=== PATIENT | male | born 1965 | race Caucasian/White ===

== ENCOUNTER 2019-05-23 15:01 | Emergency (ER) | payer BC, SELFPAY ==
[2019-05-23 15:09] VITALS: BP 144/111; PULSE 102; RESP 18; O2SAT 95; BMI 28.8
--- NOTE | 2019-05-23 15:22 | W.ED.WOUNDLC ---
HPI - Wound/Laceration General: Chief Complaint: Wound/Laceration Stated Complaint: finger lac Time Seen by Provider: 05/23/19 15:05 Source: patient Mode of arrival: ambulatory Limitations: no limitations History of Present Illness: HPI narrative: Patient is a very nice 53-year-old male who presents to ED today with complaints of a left index finger laceration that he sustained when a table saw kicked back. States his tetanus is not up-to-date. Onset (ago): hour(s) Extremity Location: Left: hand Place: home Patient tetanus UTD: No Context: accidental Associated symptoms: Reports no associated symptoms Review of Systems Skin/Breast: Reports: other (laceration) Neuro: Denies: numbness in extremities or changes in sensation PFSH ED PFSH: Social History Smoking and tobacco status: former smoker Physical Exam Const: COMMON NORMALS: no apparent distress, average body habitus, oriented x3, no limitations, healthy appearing, alert and well nourished Extremity: OTHER: Patient with an approximately 2 cm laceration over the dorsal aspect of his left index proximal phalanx. His extensor tendon and tendon sheath are visualized but do not appear damaged. Patient maintains full range of motion against resistance of the digit. Sensory appears intact. Neuro: COMMON NORMALS: oriented x3 SENSORIUM/ORIENTATION: Yes alert Skin: OTHER: see extremity assessment Procedures Laceration Laceration 1: Site: hand (left index finger) Side (If applicable): left Size (cm): 2.0 Description: irregular and clean Depth: simple, single layer Local Anesthetic: lidocaine 1% Amount of anesthesia used (mL): 2.0 Pre-repair: wound explored and irrigated extensively Skin layer closed with: nylon Size (cm): 4-0 Number of sutures: 6 Technique: simple, interrupted Course Vital Signs: Vital signs: Vital Signs Pulse Rate 102 H 05/23/19 15:09 Respiratory Rate 18 05/23/19 15:09 Blood Pressure 144/111 05/23/19 15:09 Pulse Oximetry 95 05/23/19 15:09 MDM - Wound/Laceration MDM Narrative: Medical decision making narrative: due to proximal phalanx fx evident on XR there also might be tendon involvement as well that was not evident on his exam; pt will be splinted and placed on abx and will have him follow up with Dr. Muñoz; he is aware this may require hand surgery if [place] feels this is warranted Imaging Data^: L index finger XR: Radiologist's impression: [address] [place] [address] XRay Report Signed Patient: Benedicto Brennan Unit #: [id number] : 1965 Age/Sex: 53 / M ADM Date: 05/23/19 Loc: ER Room/Bed: Attending Dr: Ordering Provider/Ordering MD: Chelsie Colon Date of Service: 05/23/19 Procedure(s): XR finger LT min 2V 59333 Accession Number(s): [id number] Report Number: [id number] PROCEDURE INFORMATION: Exam: XR Left Finger(s) Exam date and time: 05/23/2019 3:32 PM Age: 53 years old Clinical indication: Injury or trauma; Injury history: Cut with table saw 2nd digit; Initial encounter; Wound; Left; Index finger TECHNIQUE: Imaging protocol: XR Left fingers. Views: Minimum 2 views. COMPARISON: No relevant prior studies available. FINDINGS: Bones/joints: Possible hairline fracture involving the dorsal portion of the proximal shaft of the index finger proximal phalanx in the region of the laceration. Possible tiny bony injury. Image 1003. Soft tissues: Probable skin laceration over the dorsal portion of the index finger proximal phalanx. XR/XR finger LT min 2V 79014 IMPRESSION: 1. Probable skin laceration over the dorsal portion of the index finger proximal phalanx. 2. Possible hairline fracture involving the dorsal portion of the proximal shaft of the index finger proximal phalanx in the region of the laceration. Possible tiny bony injury. Image 1003. Dictated By: Guido Jaquez MD Signed By: Guido Jaquez MD Signed Date/Time: 05/23/19 1605 DD/ 1604 Discharge Plan Discharge Patient Disposition: Home, Self-Care Clinical Impression: Laceration of left index finger Qualifiers: Encounter type: initial encounter Damage to nail status: without damage Foreign body presence: without foreign body Qualified Code(s): S61.211A - Laceration without foreign body of left index finger without damage to nail, initial encounter Open fracture of proximal phalanx of left index finger Qualifiers: Encounter type: initial encounter Fracture alignment: nondisplaced Qualified Code(s): S62.641B - Nondisplaced fracture of proximal phalanx of left index finger, initial encounter for open fracture Condition: Stable Prescriptions: New Keflex 500 mg capsule 500 mg PO Q6H 7 Days Qty: 28 RF: 0 Discharge Orders: Discharge Order (Routine); Ordered 05/23/19 Ordered By: Chelsie Colon Referrals: Lambert Serrano MD [Family Provider] - Patient Instructions: Suture Care (ED), Laceration (ED), Suture Removal (ED), Finger Laceration (ED) Activity Restrictions/Additional Instructions: As discussed keep wound clean with warm soapy water several times daily. Monitor for signs of infection such as redness, swelling, drainage, increased pain. Keep splint on finger until seen by orthopedics. Case management will set you up to see Dr. Muñoz. Sutures can be removed in 7 days or as indicated from orthopedics. Coding Level of Care Code ED Exchange Specialist for Mook Griggs Exam Problem Focused
[2019-05-23] MEDS: tetanus-dipt-pertussis 0.5 mL SDV IM (16:00)
[2019-05-23 17:28] VITALS: BP 136/94; PULSE 72; RESP 18; O2SAT 98
--- NOTE | 2019-05-26 08:55 | DCPLANNER ---
Addendum entered by Shobha Thornton 05/26/19 15:42: Nyasia from ortho called case hardener and informed case hardener that after physician reviewed patients information, that patient would need to follow up with primary care, and that clinic has called patient and informed patient of this. Original Note: surgical manager had message to schedule a follow up appointment for patient with ortho. surgical manager called the ortho clinic, spoke with Nyasia, gave clinic patients information. surgical manager was told that patients information would be printed and reviewed. Clinic will call case hardener and patient with appointment information.
== END 2019-05-23 16:55 | disposition home or self-care (01) ==
PROVIDERS: Emergency Provider Physician Assistant; Family Provider Family Medicine
DX: S62.641B Nondisplaced fracture of proximal phalanx of left index finger, initial encounter for open fracture (principal); W31.2XXA Contact with powered woodworking and forming machines, initial encounter; Z87.891 Personal history of nicotine dependence; Z23 Encounter for immunization
CPT/HCPCS: 12001; 12345; 73140; 90471; 90715; 99281; 99283

== ENCOUNTER 2020-08-21 10:17 | Emergency (ER) | payer BC, SELFPAY ==
--- NOTE | 2020-08-21 10:38 | XRR_ITS ---
PROCEDURE INFORMATION: Exam: XR Chest Exam date and time: 08/21/2020 10:38 AM Age: 55 years old Clinical indication: Pain; Chest pressure; Additional info: Chest pain TECHNIQUE: Imaging protocol: XR of the chest. Views: 1 view. COMPARISON: DX [facility] Chest 2 views 10/17/2018 8:25 AM FINDINGS: Lungs: No consolidation. Minor linear scarring or atelectasis noted at the left lung base. Pleural spaces: Unremarkable. No pleural effusion. No pneumothorax. Heart/Mediastinum: Unremarkable. No cardiomegaly. Bones/joints: Unremarkable. XR/XR chest 1V portable [id number] IMPRESSION: No acute findings.
--- NOTE | 2020-08-21 10:40 | ECG_ITS ---
[facility] Test Date: 2020-08-21 Pat Name: Benedicto Brennan Department: Room: Gender: Male Community Association Manager: : 1965 Requested By: Newton Leal Order Number: [id number] Gay MD: Dajuan Perrin M.D. Measurements Intervals [place] Rate: 82 P: 47 AL: 165 QRS: -14 QRSD: 114 T: 61 QT: 357 QTc: 418 Interpretive Statements SINUS RHYTHM MODERATE INTRAVENTRICULAR CONDUCTION DELAY [110+ ms QRS DURATION] ST ELEVATION, CONSIDER INFERIOR INJURY [MARKED ST ELEVATION W/O NORMALLY INFLECTED T WAVE IN II/aVF] ACUTE RI No previous ECG available for comparison Electronically Signed On 08-21-2020 17:05:42 CDT by Dajuan Perrin M.D. [id number] f
[2020-08-21 10:41] VITALS: BP 168/96; PULSE 76; RESP 22; TEMP 36.9; O2SAT 97; BMI 29.5
--- NOTE | 2020-08-21 10:43 | USR_ITS ---
PROCEDURE INFORMATION: Exam: US Abdomen, Limited; Right Upper Quadrant Exam date and time: 08/21/2020 10:43 AM Age: 55 years old Clinical indication: Abdominal pain; Additional info: Ruq pain TECHNIQUE: Imaging protocol: US abdomen. Real time ultrasound with image documentation. Limited exam focused on the right upper quadrant. COMPARISON: CT abdomen pelvis w con* [id number] 01/14/2015 12:57 PM FINDINGS: Liver: Diffuse echogenic appearance of the liver consistent with hepatic steatosis. Please note, the left lobe is poorly assessed on exam due to bowel gas. No masses. Gallbladder: Contracted appearance of the gallbladder. Questionable echogenic debris/stones within the gallbladder lumen. Common bile duct: Normal. No stones. No dilation. Pancreas: The pancreas is poorly evaluated on examination due to overlying bowel gas. Right kidney: Normal. No mass. No hydronephrosis. US/US gall bladder [id number] IMPRESSION: 1. Contracted gallbladder with questionable intraluminal echogenic debris/gallstones. 2. Hepatic steatosis.
[2020-08-21] MEDS: aspirin 81 mg Chew Tablet 324 MG PO (11:14)
[2020-08-21 11:29] LABS: Basophils # 0.1 10^3/uL (0.0-0.1); Eosinophils # 0.2 10^3/uL (0.0-0.8); Eosinophils % 1.8 %; Hematocrit 48.7 % (42.0-52.0); Hemoglobin 16.6 g/dL (11.7-16.6); Lymphocytes # 1.7 10^3/uL (0.8-4.8); Lymphocytes % 17.8 %; Mean Corpuscular HGB Conc 34.1 g/dL (30.0-36.0); Mean Corpuscular Hemoglobin 30.9 pg (28.0-34.0); Mean Corpuscular Volume 90.5 fL (80-94); Mean Platelet Volume 9.9 fL (7.4-10.4); Monocytes # 0.6 10^3/uL (0.2-0.9); Nucleated Red Blood Cells % 0 %; Platelet Count 291 10^3/cmm (130-400); Red Blood Count 5.38 10^6/uL (4.1-5.3); Red Cell Distribution Width 12.1 % (12.1-15.1); White Blood Count 9.6 10^3/uL (4.0-10.0)
[2020-08-21 11:42] LABS: D Dimer 0.35 ug/mIFEU (0-0.59)
[2020-08-21 11:46] LABS: Alanine Aminotransferase 25 U/L (0-41); Albumin Level 4.4 g/dL (3.5-5.2); Alkaline Phosphatase 63 IU/L (40-130); Blood Urea Nitrogen 15 mg/dL (6-20); Calcium 9.4 mg/dL (8.5-10.5); Carbon Dioxide 26 mmol/L (22-29); Chloride 102 mmol/L (98-107); Globulin 2.3 g/dL (1.3-4.6); Glomerular Filtration Rate 69.8 mL/min (90-130); Glucose 104 mg/dL (65-115); Lipase 40 U/L (13-60); Osmolality Calculated 289 mOsm/kg (285-295); Sodium 139 mmol/L (136-145); Total Bilirubin 0.3 mg/dL (0.15-1.2); Total Protein 6.7 g/dL (6.6-8.7)
[2020-08-21 11:47] LABS: Troponin(5th) Baseline 6 ng/L (0-15)
[2020-08-21 11:49] LABS: Anion Gap 15.8 (5-19); Aspartate Amino Transferase 24 U/L (0-40); Potassium 4.8 mmol/L (3.5-5.1)
--- NOTE | 2020-08-21 12:12 | W.ED.CHESTPA ---
HPI - Chest Pain General: Chief Complaint: Chest Pain Stated Complaint: SOB RIGHT SIDE PAIN, N/V Time Seen by Provider: 08/21/20 10:33 Source: patient History of Present Illness: HPI narrative: Patient presents emergency department with complaint of right upper quadrant abdominal pain that has been ongoing since after dinner last night. That pain actually has improved but now is complaining of a little bit of upper chest tightness. Has had nausea and vomiting. Associated symptoms: Reports abdominal pain, nausea and vomiting; Deny dyspnea or fever(s) Review of Systems Const: Denies: fever(s) or chills ENMT: Denies: throat pain Card: Reports: chest pain Resp: Denies: dyspnea GI: Reports: abdominal pain, nausea and vomiting : Denies: flank pain Musc: Denies: neck pain Skin/Breast: Denies: rash Neuro: Denies: headache(s) Psych: Denies: anxiety PFSH ED PFSH: Social History Smoking and tobacco status: former smoker Physical Exam Const: COMMON NORMALS: no acute distress, average body habitus, patient oriented x3, no limitations, healthy appearing, alert and well nourished HENMT: COMMON NORMALS: normocephalic, atraumatic, hearing grossly normal bilaterally, external ears normal, EAC's normal, TM's normal bilaterally, Normal external nose present, Normal nasal mucous membranes and turbinates present, moist oral mucous membranes, oropharynx normal, dentition normal and gingiva normal HEAD & SCALP: normocephalic and atraumatic NOSE: Normal external nose present and Normal nasal mucous membranes and turbinates present EXTERNAL EAR: Yes external ears normal EXTERNAL AUDITORY CANAL: EAC's normal TYMPANIC MEMBRANE: TM's normal bilaterally Neck/C-Spine: COMMON NORMALS: full ROM, no lymphadenopathy, supple, no meningeal signs, no JVD, Thyroid normal and No carotid bruits THYROID: Thyroid normal Resp: COMMON NORMALS: normal respiratory effort, No retractions, No use of accessory muscles, clear to auscultation bilaterally and percussion normal AUSCULTATION: clear to auscultation bilaterally PERCUSSION: percussion normal Cardio: COMMON NORMALS: no JVD, regular rate, regular rhythm, S1 normal heart sound present, S2 normal heart sound present, No gallops present (Cardio), No clicks present (Cardio), No murmurs present (Cardio), No rub (Cardio) and Peripheral pulses 2+ throughout RATE: regular rate RHYTHM: regular rhythm HEART SOUNDS: S1 normal heart sound present and S2 normal heart sound present PERIPHERAL PULSES: Peripheral pulses 2+ throughout GI: PALPATION: Yes Tenderness to palpation present (GI) Details: RUQ Extremity: COMMON NORMALS: normal to inspection, full ROM, capillary refill normal, no joint enlargement, no clubbing, cyanosis or edema, no calf tenderness and no pedal edema Neuro: COMMON NORMALS: patient oriented x3 SENSORIUM/ORIENTATION: Yes alert MENINGEAL SIGNS: Yes no meningeal signs Course Vital Signs: Vital signs: Vital Signs Temperature 98.4 F 08/21/20 10:41 Pulse Rate 70 08/21/20 12:50 Respiratory Rate 16 08/21/20 12:50 Blood Pressure 140/96 08/21/20 12:50 Pulse Oximetry 98 08/21/20 12:50 MDM - Chest Pain MDM Narrative: Medical decision making narrative: Patient is currently chest pain-free. He has a negative troponin which effectively rules out ACS after having 12 hours of pain. His pain is really all of his right upper quadrant and I am much more suspicious of gallbladder etiology. He does have some small stones or sludge in the gallbladder. Will discharge patient home to follow-up with general surgery. Lab Data: Labs: Lab Results 08/21/20 08/21/20 08/21/20 Range/Units 11:20 11:20 11:20 WBC 9.6 (4.0-10.0) 10^3/ uL RBC 5.38 H (4.1-5.3) 10^6/u L Hgb 16.6 (11.7-16.6) g/dL Hct 48.7 (42.0-52.0) % MCV 90.5 (80-94) fL MCH 30.9 (28.0-34.0) pg MCHC 34.1 (30.0-36.0) g/dL RDW 12.1 (12.1-15.1) % Plt Count 291 (130-400) 10^3/c mm MPV 9.9 (7.4-10.4) fL Neut % (Auto) 73.0 % Lymph % (Auto) 17.8 % [place] % (Auto) 6.0 % Eos % (Auto) 1.8 % Baso % (Auto) 1.0 % Neut # (Auto) 7.00 (1.8-7.7) 10^3/u L Lymph # (Auto) 1.7 (0.8-4.8) 10^3/u L [place] # (Auto) 0.6 (0.2-0.9) 10^3/u L Eos # (Auto) 0.2 (0.0-0.8) 10^3/u L Baso # (Auto) 0.1 (0.0-0.1) 10^3/u L Nucleated RBC % (a uto) 0 % Nucleated RBCs # 0.0 /100WBC D-Dimer 0.35 (0-0.59) ug/mIFE U Sodium 139 (136-145) mmol/L Potassium 4.8 (3.5-5.1) mmol/L Chloride 102 (98-107) mmol/L Carbon Dioxide 26 (22-29) mmol/L Anion Gap 15.8 (5-19) BUN 15 (6-20) mg/dL Creatinine 1.1 (0.7-1.2) mg/dL GFR Calculation 69.8 L (90-130) mL/min Glucose 104 (65-115) mg/dL Calculated Osmolal ity 289 (285-295) mOsm/k g Calcium 9.4 (8.5-10.5) mg/dL Total Bilirubin 0.3 (0.15-1.2) mg/dL AST 24 (0-40) U/L ALT 25 (0-41) U/L Alkaline Phosphata se 63 (40-130) IU/L Troponin T Baselin e (0-15) ng/L Total Protein 6.7 (6.6-8.7) g/dL Albumin 4.4 (3.5-5.2) g/dL Globulin 2.3 (1.3-4.6) g/dL Lipase 40 (13-60) U/L 08/21/20 Range/Units 11:20 WBC (4.0-10.0) 10^3/ uL RBC (4.1-5.3) 10^6/u L Hgb (11.7-16.6) g/dL Hct (42.0-52.0) % MCV (80-94) fL MCH (28.0-34.0) pg MCHC (30.0-36.0) g/dL RDW (12.1-15.1) % Plt Count (130-400) 10^3/c mm MPV (7.4-10.4) fL Neut % (Auto) % Lymph % (Auto) % [place] % (Auto) % Eos % (Auto) % Baso % (Auto) % Neut # (Auto) (1.8-7.7) 10^3/u L Lymph # (Auto) (0.8-4.8) 10^3/u L [place] # (Auto) (0.2-0.9) 10^3/u L Eos # (Auto) (0.0-0.8) 10^3/u L Baso # (Auto) (0.0-0.1) 10^3/u L Nucleated RBC % (a uto) % Nucleated RBCs # /100WBC D-Dimer (0-0.59) ug/mIFE U Sodium (136-145) mmol/L Potassium (3.5-5.1) mmol/L Chloride (98-107) mmol/L Carbon Dioxide (22-29) mmol/L Anion Gap (5-19) BUN (6-20) mg/dL Creatinine (0.7-1.2) mg/dL GFR Calculation (90-130) mL/min Glucose (65-115) mg/dL Calculated Osmolal ity (285-295) mOsm/k g Calcium (8.5-10.5) mg/dL Total Bilirubin (0.15-1.2) mg/dL AST (0-40) U/L ALT (0-41) U/L Alkaline Phosphata se (40-130) IU/L Troponin T Baselin e 6 (0-15) ng/L Total Protein (6.6-8.7) g/dL Albumin (3.5-5.2) g/dL Globulin (1.3-4.6) g/dL Lipase (13-60) U/L Discharge Plan Discharge Patient Disposition: Home Clinical Impression: Cholelithiasis Qualifiers: Cholelithiasis location: gallbladder Cholecystitis presence: without cholecystitis Biliary obstruction: without biliary obstruction Qualified Code(s): K80.20 - Calculus of gallbladder without cholecystitis without obstruction Condition: Stable Prescriptions: New Ultram 50 mg tablet 50 mg PO Q4H PRN (Reason: pain) Qty: 20 RF: 0 Zofran 4 mg tablet 4 mg PO Q8H 5 Days Qty: 15 RF: 0 No Action Tylenol Extra Strength 500 mg Tablet 1,000 mg PO PRN RF: 0 pantoprazole 40 mg tablet,delayed release (DR/EC) 40 mg PO QAM RF: 0 simvastatin 20 mg tablet 20 mg PO QAM RF: 0 hydrochlorothiazide 12.5 mg capsule 12.5 mg PO QAM RF: 0 Discharge Orders: Discharge ED (Routine); Ordered 08/21/20 Ordered By: Newton Leal Referrals: Kodi Rider MD [Physician] - Lambert Serrano MD [Primary Care Provider] - Discharge Diet: Low Cholesterol and Low Fat Discharge Activity: Resume usual activity Patient Instructions: Opioid Safety Coding Level of Care Code ED Viscosity Worker for Chg Fwd Exam Detailed
--- NOTE | 2020-08-21 12:40 | ECG_ITS ---
[facility] Test Date: 2020-08-21 Pat Name: Benedicto Brennan Department: Room: Gender: Male Clinical Evaluator: : 1965 Requested By: Newton Leal Order Number: [id number] Deidra MD: Dajuan Perrin M.D. Measurements Intervals [place] Rate: 71 P: 30 IA: 172 QRS: -3 QRSD: 113 T: 35 QT: 383 QTc: 417 Interpretive Statements SINUS RHYTHM INDETERMINATE AXIS INCOMPLETE RIGHT BUNDLE BRANCH BLOCK [90+ ms QRS DURATION, TERMINAL R IN V1/V2, 40+ ms S IN I/aVL/V4/V5/V6] INFERIOR MYOCARDIAL INFARCTION [40+ ms Q WAVE AND/OR ST/T ABNORMALITY IN II/aVF], OF INDETERMINATE AGE Compared to ECG 08/21/2020 10:39:58 Indeterminate axis now present Incomplete right bundle-branch block now present Intraventricular conduction delay no longer present ST (T wave) deviation no longer present Myocardial infarct finding still present Electronically Signed On 08-21-2020 17:19:05 CDT by Dajuan Perrin M.D. [id number]
[2020-08-21 12:50] VITALS: BP 140/96; PULSE 70; RESP 16; O2SAT 98
[2020-08-21 13:28] VITALS: BP 140/96; PULSE 70; RESP 16; O2SAT 98
--- NOTE | 2020-08-22 10:34 | DCPLANNER ---
financial institution manager had message to schedule a follow up appointment for patient with Dr. Aleman. financial institution manager emailed patients information to the office of Dr. Aleman. Clinic will call patient with appointment information, child welfare caseworker will call for appointment information.
--- NOTE | 2020-09-07 13:42 | DCPLANNER ---
Patient had a follow up appointment scheduled for 08.30.[address] Aleman - patient did attend appointment.
== END 2020-08-21 13:29 | disposition home or self-care (01) ==
PROVIDERS: Emergency Provider Emergency Medicine; PCP Family Medicine
DX: K80.20 Calculus of gallbladder without cholecystitis without obstruction (principal); Z87.891 Personal history of nicotine dependence
CPT/HCPCS: 71045; 76705; 80053; 83690; 84484; 85025; 85378; 93005; 99283

== ENCOUNTER 2022-01-10 01:13 | Emergency (ER) | payer BC, SELFPAY ==
[2022-01-10 01:24] VITALS: BP 170/114; PULSE 103; RESP 25; TEMP 36.9; O2SAT 95; BMI 29.2
--- NOTE | 2022-01-10 01:25 | ECG_ITS ---
[facility] Test Date: 2022-01-10 Pat Name: Benedicto Brennan Department: Room: Gender: Male Adjunct Instructor In Economics: : 1965 Requested By: Milly Mendenhall Order Number: [id number] Deidra MD: Henrique Ny M.D. Measurements Intervals [place] Rate: 94 P: 42 VT: 176 QRS: -11 QRSD: 105 T: 30 QT: 336 QTc: 421 Interpretive Statements SINUS RHYTHM POSSIBLE LEFT ATRIAL ENLARGEMENT [-0.1mV P-WAVE IN V1/V2] INDETERMINATE AXIS Compared to ECG 08/21/2020 12:34:22 Incomplete right bundle-branch block no longer present Myocardial infarct finding no longer present Electronically Signed On 01-10-2022 9:25:34 MAINTENANCE AND ENGINEERING MANAGER by Henrique Ny M.D. [id number]
--- NOTE | 2022-01-10 01:25 | W.ED.CHESTPA ---
HPI - Chest Pain General: Chief Complaint: Chest Pain Stated Complaint: Sob Time Seen by Provider: 01/10/22 01:14 Source: patient Mode of arrival: ambulatory Limitations: no limitations History of Present Illness: 56-year-old male states he been having a very sharp right-sided chest pain over the last 3 days. He states he has worsening pain with movement of his arm along with palpation and with deep inspiration. He states that he feel like he may have pulled a muscle on that side. He denies any cough or fever states he had vomiting on Saturday and that is when the pain started. Associated symptoms: Reports dyspnea; Deny abdominal pain, fever(s), nausea or vomiting Review of Systems Const: Denies: fever(s), chills, body aches or change in appetite Eyes: Denies: blurry vision or eye discomfort ENMT: Denies: throat pain or dental pain Card: Reports: chest pain Resp: Reports: dyspnea GI: Denies: abdominal pain, nausea, vomiting or diarrhea : Denies: dysuria Musc: Denies: neck pain or back pain Skin/Breast: Denies: rash Neuro: Denies: headache(s) Psych: Denies: depression Nimesh/Lymph: Denies: easy bruising All/Imm: Denies: urticaria PFSH ED PFSH: Medical History (Updated 01/10/22 @ 02:15 by Milly Mendenhall MD) No pertinent past medical history Social History Smoking and tobacco status: former smoker Physical Exam Const: COMMON NORMALS: no acute distress, patient oriented x3 and healthy appearing HENMT: COMMON NORMALS: normocephalic and atraumatic HEAD & SCALP: normocephalic and atraumatic Eye: COMMON NORMALS: Equal, round and reactive pupils present and EOMs intact bilaterally PUPIL: Yes Equal, round and reactive pupils present Neck/C-Spine: COMMON NORMALS: full ROM and supple Chest: COMMONS NORMALS: normal inspection of the chest OTHER: Point tender on right side of the chest reproduces pain Resp: COMMON NORMALS: normal respiratory effort, No retractions, No use of accessory muscles and clear to auscultation bilaterally AUSCULTATION: clear to auscultation bilaterally Cardio: COMMON NORMALS: regular rate, regular rhythm and No murmurs present (Cardio) RATE: regular rate RHYTHM: regular rhythm GI: COMMON NORMALS: Normal to inspection, nondistended, normoactive bowel sounds present, Soft to palpation, non-tender and no masses PALPATION: Yes Soft to palpation Extremity: COMMON NORMALS: normal to inspection and full ROM Neuro: COMMON NORMALS: patient oriented x3, moves all extremities and no focal motor deficits Psych: COMMON NORMALS: mental status grossly normal, Normal thought process present and cooperative THOUGHT PROCESS: Normal thought process present Skin: COMMON NORMALS: no rashes or lesions noted and no wounds GENERAL SKIN EXAM: no rashes or lesions noted Course Vital Signs: Vital signs: Vital Signs Temperature 98.4 F 01/10/22 01:24 Pulse Rate 103 H 01/10/22 01:24 Respiratory Rate 18 01/10/22 01:34 Blood Pressure 170/114 01/10/22 01:24 Pulse Oximetry 95 01/10/22 01:24 Oxygen Delivery Me thod 01/10/22 01:24 MDM - Chest Pain Medical Decision Making Patient presents here with chest pain is likely muscular in nature his x-ray here is normal D-dimer troponin are normal as well as pains improved we will prescribe pain meds he is to follow-up with PCP and return if worsening. Lab Data 01/10/22 01:28 01/10/22 01:28 Laboratory Results WBC 12.3 10^3/uL (4.0-10.0) H 01/10/22 01:28 RBC 5.26 10^6/uL (4.1-5.3) 01/10/22 01:28 Hgb 16.2 g/dL (11.7-16.6) 01/10/22 01:28 Hct 48.8 % (42.0-52.0) 01/10/22 01:28 MCV 92.8 fl (80-94) 01/10/22 01:28 MCH 30.8 pg (28.0-34.0) 01/10/22 01:28 MCHC 33.2 g/dL (30.0-36.0) 01/10/22 01:28 RDW 12.1 % (12.1-15.1) 01/10/22 01:28 Plt Count 350 10^3/cmm (130-400) 01/10/22 01:28 MPV 9.3 fL (7.4-10.4) 01/10/22 01:28 Neut % (Auto) 72.5 % 01/10/22 01:28 Lymph % (Auto) 16.7 % 01/10/22 01:28 Hughes % (Auto) 7.2 % 01/10/22 01:28 Eos % (Auto) 2.4 % 01/10/22 01:28 Baso % (Auto) 0.8 % 01/10/22 01:28 Neut # (Auto) 8.88 10^3/uL (1.8-7.7) H 01/10/22 01:28 Lymph # (Auto) 2.1 10^3/uL (0.8-4.8) 01/10/22 01:28 Hughes # (Auto) 0.9 10^3/uL (0.2-0.9) 01/10/22 01:28 Eos # (Auto) 0.3 10^3/uL (0.0-0.8) 01/10/22 01:28 Baso # (Auto) 0.1 10^3/uL (0.0-0.1) 01/10/22 01:28 Nucleated RBC % (auto) 0 % 01/10/22 01: Nucleated RBCs # 0.0 /100WBC 01/10/22 01:28 D-Dimer 0.28 ug/mIFEU (0-0.59) 01/10/22 01:28 Sodium 138 mmol/L (136-145) 01/10/22 01:28 Potassium 4.0 mmol/L (3.5-5.1) 01/10/22 01:28 Chloride 100 mmol/L (98-107) 01/10/22 01:28 Carbon Dioxide 27 mmol/L (22-29) 01/10/22 01:28 Anion Gap 15.0 (5-19) 01/10/22 01:28 BUN 21 mg/dL (6-20) H 01/10/22 01:28 Creatinine 1.1 mg/dL (0.7-1.2) 01/10/22 01:28 GFR Calculation 69.5 mL/min (90-130) L 01/10/22 01:28 Glucose 125 mg/dL (65-115) H 01/10/22 01:28 Calculated Osmolality 290 mOsm/kg (285-295) 01/10/22 01:28 Calcium 9.4 mg/dL (8.5-10.5) 01/10/22 01:28 Total Bilirubin 0.3 mg/dL (0.15-1.2) 01/10/22 01:28 AST 17 U/L (0-40) 01/10/22 01:28 ALT 22 U/L (0-41) 01/10/22 01:28 Alkaline Phosphatase 75 U/L (40-130) 01/10/22 01:28 Troponin T Baseline 8 ng/L (0-15) 01/10/22 01:28 NT-Pro-B Natriuret Pep 15 pg/mL (0-125) 01/10/22 01:28 Total Protein 7.3 g/dL (6.6-8.7) 01/10/22 01:28 Albumin 4.6 g/dL (3.5-5.2) 01/10/22 01:28 Globulin 2.7 g/dL (1.3-4.6) 01/10/22 01:28 EKG Data EKG 1: I personally reviewed and interpreted this EKG as follows: EKG interpretation date: 01/10/22 EKG interpretation time: 01:33 Interpretation: nsr hr [address] or t wave abnormalities qrs 105 qtc 388 Discharge Plan Discharge Patient Disposition: Home Clinical Impression: Chest pain Condition: Stable Prescriptions: New hydrocodone-acetaminophen 5-325 mg tablet 1 tab PO Q6H PRN (Reason: pain) Qty: 14 0RF Naprosyn 500 mg tablet 500 mg PO BID PRN (Reason: pain) Qty: 20 0RF No Action Tylenol Extra Strength 500 mg Tablet 1,000 mg PO PRN pantoprazole 40 mg tablet,delayed release (DR/EC) 40 mg PO QAM simvastatin 20 mg tablet 20 mg PO QAM hydrochlorothiazide 12.5 mg capsule 12.5 mg PO QAM Ultram 50 mg tablet 50 mg PO Q4H PRN (Reason: pain) Qty: 20 0RF Discharge Orders: Discharge ED (Routine); Ordered 01/10/22 Ordered By: Milly Mendenhall Referrals: Lambert Serrano MD [Primary Care Provider] - 1-3 days Discharge Diet: Advance as tolerated Discharge Activity: Resume usual activity Patient Instructions: Chest Wall Pain (ED), Opioid Safety Coding Level of Care Code ED Groundskeeping Maintenance for Chg Fwd Exam Comprehensive
[2022-01-10 01:30] VITALS: BP 161/99; PULSE 97; RESP 18; O2SAT 97
[2022-01-10 01:34] VITALS: RESP 18
[2022-01-10] MEDS: ondansetron 2 mg/ML SDV 2 mL 4 MG IVP (01:34)
[2022-01-10] MEDS: HYDROmorphone 1 mg/mL INJ 1 mL IVP (01:34)
[2022-01-10 01:36] LABS: Basophils # 0.1 10^3/uL (0.0-0.1); Basophils % 0.8 %; Eosinophils # 0.3 10^3/uL (0.0-0.8); Eosinophils % 2.4 %; Hematocrit 48.8 % (42.0-52.0); Hemoglobin 16.2 g/dL (11.7-16.6); Lymphocytes # 2.1 10^3/uL (0.8-4.8); Lymphocytes % 16.7 %; Mean Corpuscular HGB Conc 33.2 g/dL (30.0-36.0); Mean Corpuscular Hemoglobin 30.8 pg (28.0-34.0); Mean Corpuscular Volume 92.8 fl (80-94); Mean Platelet Volume 9.3 fL (7.4-10.4); Monocytes # 0.9 10^3/uL (0.2-0.9); Monocytes % 7.2 %; Neutrophils # 8.88 10^3/uL (1.8-7.7); Neutrophils % 72.5 %; Nucleated Red Blood Cells % 0 %; Platelet Count 350 10^3/cmm (130-400); Red Blood Count 5.26 10^6/uL (4.1-5.3); Red Cell Distribution Width 12.1 % (12.1-15.1); White Blood Count 12.3 10^3/uL (4.0-10.0)
--- NOTE | 2022-01-10 01:44 | XRR_ITS ---
PROCEDURE INFORMATION: Exam: XR Chest Exam date and time: 01/10/2022 2:47 AM Age: 56 years old Clinical indication: Shortness of breath; Right-sided; Patient HX: C/O RT sided chest pain with SOB; Additional info: Cp TECHNIQUE: Imaging protocol: Radiologic exam of the chest. Views: 1 view. COMPARISON: CR XR chest 1V portable [id number] 08/21/2020 11:20 AM FINDINGS: Lungs: The lungs are underinflated. Bibasilar subsegmental atelectasis is appreciated. Pleural spaces: Unremarkable. No pleural effusion. No pneumothorax. Heart/Mediastinum: Unremarkable. No cardiomegaly. Bones/joints: No acute fracture is seen. XR/XR chest 1V portable [id number] IMPRESSION: Bibasilar subsegmental atelectasis.
[2022-01-10 01:51] LABS: D Dimer 0.28 ug/mIFEU (0-0.59)
[2022-01-10 01:57] LABS: Troponin(5th) Baseline 8 ng/L (0-15)
[2022-01-10 02:00] VITALS: BP 136/87; PULSE 89; RESP 17; O2SAT 94
[2022-01-10 02:03] LABS: Alanine Aminotransferase 22 U/L (0-41); Albumin Level 4.6 g/dL (3.5-5.2); Alkaline Phosphatase 75 U/L (40-130); Aspartate Amino Transferase 17 U/L (0-40); Blood Urea Nitrogen 21 mg/dL (6-20); Calcium 9.4 mg/dL (8.5-10.5); Carbon Dioxide 27 mmol/L (22-29); Chloride 100 mmol/L (98-107); Globulin 2.7 g/dL (1.3-4.6); Glomerular Filtration Rate 69.5 mL/min (90-130); Glucose 125 mg/dL (65-115); NT Pro B Type Natriuretic Pept 15 pg/mL (0-125); Osmolality Calculated 290 mOsm/kg (285-295); Sodium 138 mmol/L (136-145); Total Bilirubin 0.3 mg/dL (0.15-1.2); Total Protein 7.3 g/dL (6.6-8.7)
[2022-01-10 02:30] VITALS: BP 129/87; PULSE 82; RESP 15; O2SAT 92
== END 2022-01-10 02:43 | disposition home or self-care (01) ==
PROVIDERS: Emergency Provider Emergency Medicine; PCP Family Medicine
DX: R07.9 Chest pain, unspecified (principal); Z87.891 Personal history of nicotine dependence
CPT/HCPCS: 71045; 80053; 83880; 84484; 85025; 85378; 93005; 96374; 96375; 99285; J1170; J2405

== ENCOUNTER 2023-03-30 09:16 | Observation (INO) | payer BC, SELFPAY ==
[2023-03-30] VITALS (9 sets, daily range): BP systolic 123–148; BP diastolic 62–94; PULSE 56–82; RESP 11–16; TEMP 36.9; O2SAT 95–97; BMI 27.8
--- NOTE | 2023-03-30 09:26 | CTR_ITS ---
PROCEDURE INFORMATION: Exam: CT Head Without Contrast Exam date and time: 03/30/2023 9:27 AM Age: 57 years old Clinical indication: Stroke-like symptoms; RT upper extremity weakness; Additional info: Stroke symptoms TECHNIQUE: Imaging protocol: Computed tomography of the head without contrast. Radiation optimization: All CT scans at this facility use at least one of these dose optimization techniques: automated exposure control; mA and/or kV adjustment per patient size (includes targeted exams where dose is matched to clinical indication); or iterative reconstruction. Other technique: STROKE PROTOCOL was implemented. COMPARISON: MR angio head wo con [id number] 02/26/2017 9:14 AM RADIATION DOSE METRICS: Total DLP (mGy-cm): 1143.18 FINDINGS: Brain: There is no evidence of acute parenchymal hemorrhage, extra-axial collection, or acute infarction. There is no mass effect, midline shift, or downward herniation. Cerebral ventricles: No ventriculomegaly. Paranasal sinuses: Visualized sinuses are unremarkable. No fluid levels. Mastoid air cells: Visualized mastoid air cells are well aerated. Bones/joints: Unremarkable. No acute fracture. Soft tissues: Unremarkable. CT/CT head wo con* [id number] IMPRESSION: No acute intracranial abnormality. ASSESSMENT: ASPECTS ([place] Stroke Program Early CT Score) is 10.
--- NOTE | 2023-03-30 09:26 | CTR_ITS ---
PROCEDURE INFORMATION: Exam: CTA Head With Contrast, Arteriography Exam date and time: 03/30/2023 9:33 AM Age: 57 years old Clinical indication: Patient HX: RT sided weakness; Additional info: Vertigo, malignant HTN TECHNIQUE: Imaging protocol: Computed tomographic angiography of the head with contrast. Exam focused on the arteries. 3D rendering (Not supervised by radiologist): MIP and/or 3D reconstructed images were created by the technologist. Radiation optimization: All CT scans at this facility use at least one of these dose optimization techniques: automated exposure control; mA and/or kV adjustment per patient size (includes targeted exams where dose is matched to clinical indication); or iterative reconstruction. Contrast material: OMNI 350; Contrast volume: 100 ml; Contrast route: INTRAVENOUS (IV); COMPARISON: CT head wo con* [id number] 03/30/2023 9:27 AM RADIATION DOSE METRICS: Total DLP (mGy-cm): 552.01 FINDINGS: ANTERIOR CIRCULATION: Right internal carotid artery: Intracranial segment is patent with no significant stenosis. No aneurysm. Right middle cerebral artery: No occlusion or significant stenosis. No aneurysm. Right anterior cerebral artery: No occlusion or significant stenosis. No aneurysm. Left internal carotid artery: Intracranial segment is patent with no significant stenosis. No aneurysm. Left middle cerebral artery: No occlusion or significant stenosis. No aneurysm. Left anterior cerebral artery: No occlusion or significant stenosis. No aneurysm. POSTERIOR CIRCULATION: Right vertebral artery: No occlusion or significant stenosis. No aneurysm. Left vertebral artery: No occlusion or significant stenosis. No aneurysm. Basilar artery: No occlusion or significant stenosis. No aneurysm. Right posterior cerebral artery: No occlusion or significant stenosis. No aneurysm. Left posterior cerebral artery: No occlusion or significant stenosis. No aneurysm. Brain: No definite mass, mass effect, or midline shift. Cerebral ventricles: No ventriculomegaly. Bones/joints: Unremarkable. No acute fracture. Soft tissues: Unremarkable. PROCEDURE INFORMATION: Exam: CTA Neck With Contrast Exam date and time: 03/30/2023 9:33 AM Age: 57 years old Clinical indication: Patient HX: RT sided weakness; Additional info: Vertigo, malignant HTN TECHNIQUE: Imaging protocol: Computed tomographic angiography of the neck with contrast. Exam focused on the cervical segments of the vasculature. 3D rendering (Not supervised by radiologist): MIP and/or 3D reconstructed images were created by the technologist. Radiation optimization: All CT scans at this facility use at least one of these dose optimization techniques: automated exposure control; mA and/or kV adjustment per patient size (includes targeted exams where dose is matched to clinical indication); or iterative reconstruction. Contrast material: OMNI 350; Contrast volume: 100 ml; Contrast route: INTRAVENOUS (IV); COMPARISON: CT head wo venu* [id number] 03/30/2023 9:27 AM RADIATION DOSE METRICS: Total DLP (mGy-cm): 552.01 FINDINGS: Right common carotid artery: No stenosis. No dissection or occlusion. There is mild ulcerated soft plaque at the carotid bulb. Right internal carotid artery: No stenosis of the extracranial segment. No dissection or occlusion. Right external carotid artery: No occlusion or stenosis of the origin. Left common carotid artery: No stenosis. No dissection or occlusion. There is mild soft and calcified plaque at the carotid bulb and bifurcation. Left internal carotid artery: No stenosis of the extracranial segment. No dissection or occlusion. Left external carotid artery: No occlusion or stenosis of the origin. Right vertebral artery: No stenosis. No dissection or occlusion. Left vertebral artery: No stenosis. No dissection or occlusion. Soft tissues: Normal. No significant soft tissue swelling. Bones/joints: No acute fracture. CT/CT angio headneck* [id number] IMPRESSION: No large vessel stenosis or occlusion. IMPRESSION: 1. No significant carotid or vertebral artery stenosis. 2. Mild ulcerated plaque at the right carotid bulb. REFERENCES: NASCET CRITERIA. The degree of stenosis in the cervical segment of the internal carotid artery is based on NASCET criteria. Normal is no stenosis. Mild is less than 50% stenosis. Moderate is 50-69% stenosis. Severe is 70% to 99% stenosis. Total occlusion is no detectable patent lumen.
--- NOTE | 2023-03-30 09:30 | W.ED.NEUROSD ---
HPI - Neuro Symptoms/Deficit General: Chief Complaint: Neuro Symptoms/Deficit Stated Complaint: dizzy , neck pain Time Seen by Provider: 03/30/23 09:26 History of Present Illness: 57-year-old male with a history of hypertension who presents the emergency room with severe vertigo/dizziness, headache, right-sided neck and shoulder pain, gait disturbance, and high blood pressure. His estimated symptoms started about an hour and a half ago. He had woken up before his and was doing some laundry when he came and told her he was feeling bad. He is complaining of a headache. He says he is very dizzy. No focal motor deficits. He is leaning to the right but does not seem to have any obvious visual deficits. Speech does not sound slurred. He does have some right-sided nystagmus on exam. Review of Systems Narrative: General: Alert, patient appears in some distress. Skin: Warm, dry. Head: Normocephalic, atraumatic. Neck: Supple, trachea midline. Eye: Extraocular movements are intact. Ears, nose, mouth and throat: mucosa moist. Cardiovascular: Regular, Normal peripheral perfusion. Respiratory: Lungs are clear to auscultation, respirations are non-labored, breath sounds are equal, Symmetrical chest wall expansion. Gastrointestinal: Soft, Nontender, Non distended, Normal bowel sounds. Musculoskeletal: Normal ROM, no deformity. Neurological: Alert and oriented, No focal motor deficit observed. Psychiatric: Cooperative, appropriate mood & affect. [facility] ED PFSH: Medical History No pertinent past medical history Social History Smoking and tobacco/nicotine status: former use of tobacco/nicotine Course Vital Signs: Vital signs: Vital Signs Pulse Rate 68 03/30/23 12:07 Respiratory Rate 12 03/30/23 12:07 Blood Pressure 141/88 03/30/23 12:07 Pulse Oximetry 96 03/30/23 12:07 MDM - Neuro Symptoms/Deficit Medical Decision Making See previous note Lab Data 03/30/23 10:00 03/30/23 10:[address] 03/30/23 09:26 IMPRESSION: No acute intracranial abnormality. ASSESSMENT: ASPECTS ([place] Stroke Program Early CT Score) is 10. Head/Neck CTA 03/30/23 09:26 IMPRESSION: No large vessel stenosis or occlusion. IMPRESSION: 1. No significant carotid or vertebral artery stenosis. 2. Mild ulcerated plaque at the right carotid bulb. REFERENCES: NASCET CRITERIA. The degree of stenosis in the cervical segment of the internal carotid artery is based on NASCET criteria. Normal is no stenosis. Mild is less than 50% stenosis. Moderate is 50-69% stenosis. Severe is 70% to 99% stenosis. Total occlusion is no detectable patent lumen. Laboratory Results WBC 15.08 10^3/uL (3.29-11.43) H 03/30/23 10:00 RBC 4.72 10^6/uL (3.85-5.65) 03/30/23 10:00 Hgb 14.70 g/dL (11.27-16.99) 03/30/23 10:00 Hct 43.0 % (37-53) 03/30/23 10:00 MCV 91.1 fl (82-101) 03/30/23 10:00 MCH 31.1 pg (27-33) 03/30/23 10:00 MCHC 34.2 g/dL (30-55) 03/30/23 10:00 RDW 11.9 % (12.1-15.1) L 03/30/23 10:00 Plt Count 238 10^3/cmm (157-399) 03/30/23 10:00 MPV 9.4 fL (7.4-10.4) 03/30/23 10:00 Neut % (Auto) 87.1 % 03/30/23 10:00 Lymph % (Auto) 7.0 % 03/30/23 10:00 Mclennan % (Auto) 4.4 % 03/30/23 10:00 Eos % (Auto) 0.3 % 03/30/23 10:00 Baso % (Auto) 0.5 % 03/30/23 10:00 Neut # (Auto) 13.16 10^3/uL (1.8-7.7) H 03/30/23 10:00 Lymph # (Auto) 1.1 10^3/uL (0.8-4.8) 03/30/23 10:00 Mclennan # (Auto) 0.7 10^3/uL (0.2-0.9) 03/30/23 10:00 Eos # (Auto) 0.0 10^3/uL (0.0-0.8) 03/30/23 10:00 Baso # (Auto) 0.1 10^3/uL (0.0-0.1) 03/30/23 10:00 Nucleated RBC % (auto) 0 % 03/30/23 10:00 Nucleated RBCs # 0.0 /100WBC 03/30/23 10:00 PT 14.10 SECONDS (12.1-14.9) 03/30/23 10:00 INR 1.06 (0.8-1.2) 03/30/23 10:00 APTT 24.6 SECONDS (23.9-36.7) 03/30/23 10:00 Sodium 137 mmol/L (136-145) 03/30/23 10:00 Potassium 3.5 mmol/L (3.5-5.1) 03/30/23 10:00 Chloride 103 mmol/L (98-107) 03/30/23 10:00 Carbon Dioxide 24 mmol/L (22-29) 03/30/23 10:00 Anion Gap 13.5 (5-19) 03/30/23 10:00 BUN 20 mg/dL (6-20) 03/30/23 10:00 Creatinine 1.1 mg/dL (0.7-1.2) 03/30/23 10:00 GFR Calculation 69.2 mL/min (90-130) L 03/30/23 10:00 Glucose 154 mg/dL (65-115) H 03/30/23 10:00 POC Glucose 141 mg/dL (70-110) H 03/30/23 09:44 Calculated Osmolality 290 mOsm/kg (285-295) 03/30/23 10:00 Lactic Acid 2.3 mmol/L (0.5-2.2) H 03/30/23 10:00 Calcium 8.3 mg/dL (8.5-10.5) L 03/30/23 10:00 Total Bilirubin 0.5 mg/dL (0.15-1.2) 03/30/23 10:00 AST 15 U/L (0-40) 03/30/23 10:00 ALT 22 U/L (0-41) 03/30/23 10:00 Alkaline Phosphatase 51 U/L (40-130) 03/30/23 10:00 Total Protein 6.2 g/dL (6.6-8.7) L 03/30/23 10:00 Albumin 3.9 g/dL (3.5-5.2) 03/30/23 10:00 Globulin 2.3 g/dL (1.3-4.6) 03/30/23 10:00 Coronavirus 229E (PCR) Not detected (NOT DETECT) 03/30/23 10:38 Influenza Type A Ag negative (Negative) 03/30/23 10:38 Influenza Type B Ag negative (Negative) 03/30/23 10:38 SARS-CoV-2 (PCR) Not detected (NOT DETECT) 03/30/23 10:38 XR interpretation done by ED provider, pending radiology final review Discharge Plan Discharge Patient Disposition: Admitted As Inpatient Admit Provider: Ya Quiles Clinical Impression: Cerebrovascular accident, Vertigo, Nystagmus Condition: Stable Coding Level of Care Code ED Business Services Manager for [employer]ook Griggs
[2023-03-30] MEDS: iohexol 350 mg/mL 500 mL Btl (per mL) IV (09:40)
--- NOTE | 2023-03-30 09:47 | PC.PHAR ---
UNABLE TO VERIFY MEDICATIONS AT THIS TIME. PT IS CURRENT ON MED REFILLS AND ONLY TAKES TYLENOL NEEDED at home
[2023-03-30 09:49] LABS: Glucose Point of Care 141 mg/dL (70-110)
--- NOTE | 2023-03-30 10:03 | ECG_ITS ---
[facility] Test Date: 2023-03-30 Pat Name: Benedicto Brennan Department: Room: Gender: Male Oncology Nurse: : 1965 Requested By: Tricia Benavides Order Number: [id number] MD: Sabino Mcneill M.D. Measurements Intervals [place] Rate: 73 P: 51 WV: 182 QRS: -14 QRSD: 110 T: 35 QT: 386 QTc: 426 Interpretive Statements SINUS RHYTHM Compared to ECG 01/10/2022 01:33:08 Indeterminate axis no longer present Electronically Signed On 03-31-2023 7:41:52 BELLY DUMP DRIVER by Sabino Mcneill M.D. [email or web address]
[2023-03-30 10:04] LABS: Basophils # 0.1 10^3/uL (0.0-0.1); Basophils % 0.5 %; Eosinophils % 0.3 %; Lymphocytes # 1.1 10^3/uL (0.8-4.8); Mean Corpuscular HGB Conc 34.2 g/dL (30-55); Mean Corpuscular Hemoglobin 31.1 pg (27-33); Mean Corpuscular Volume 91.1 fl (82-101); Mean Platelet Volume 9.4 fL (7.4-10.4); Monocytes # 0.7 10^3/uL (0.2-0.9); Monocytes % 4.4 %; Neutrophils # 13.16 10^3/uL (1.8-7.7); Neutrophils % 87.1 %; Nucleated Red Blood Cells % 0 %; Platelet Count 238 10^3/cmm (157-399); Red Blood Count 4.72 10^6/uL (3.85-5.65); Red Cell Distribution Width 11.9 % (12.1-15.1); White Blood Count 15.08 10^3/uL (3.29-11.43)
--- NOTE | 2023-03-30 10:04 | W.ED.NEUROSD ---
HPI - Neuro Symptoms/Deficit General: Chief Complaint: Neuro Symptoms/Deficit Stated Complaint: dizzy , neck pain Time Seen by Provider: 03/30/23 09:26 History of Present Illness: 57-year-old male with a history of hypertension who presents to the emergency room with vertigo, nausea, right-sided weakness and right neck pain. Symptoms started at 8 AM about 2 hours ago. He had been out and was doing some laundry when it started. No fever. No chills. No chest pain. No shortness of breath. No abdominal pain. No dysarthria. On exam he has some right-sided extremity weakness and right horizontal nystagmus. Review of Systems Narrative: Constitutional symptoms: Negative except as documented in HPI. Skin symptoms: Negative except as documented in HPI. Eye symptoms: Negative except as documented in HPI. ENMT symptoms: Negative except as documented in HPI. Respiratory symptoms: Negative except as documented in HPI. Cardiovascular symptoms: Negative except as documented in HPI. Gastrointestinal symptoms: Negative except as documented in HPI. Genitourinary symptoms: Negative except as documented in HPI. Musculoskeletal symptoms: Negative except as documented in HPI. Neurologic symptoms: Negative except as documented in HPI. Psychiatric symptoms: Negative except as documented in HPI. Endocrine symptoms: Negative except as documented in HPI. [facility] ED PFSH: Medical History (Updated 03/30/23 @ 11:57 by Tricia Cabrera MD) No pertinent past medical history Social History Smoking and tobacco/nicotine status: former use of tobacco/nicotine Physical Exam Narrative: EXAM NARRATIVE: General: Alert, no acute distress. Skin: Warm, dry. Head: Normocephalic, atraumatic. Neck: Supple, trachea midline. Eye: Extraocular movements are intact. Ears, nose, mouth and throat: mucosa moist. Cardiovascular: Regular, Normal peripheral perfusion. Respiratory: Lungs are clear to auscultation, respirations are non-labored, breath sounds are equal, Symmetrical chest wall expansion. Gastrointestinal: Soft, Nontender, Non distended, Normal bowel sounds. Musculoskeletal: Normal ROM, no deformity. Neurological: Alert and oriented, patient has right horizontal nystagmus, mild right-sided arm and dish up person weakness. Mild right leg weakness. No dysarthria. No facial droop. Psychiatric: Cooperative, appropriate mood & affect. MDM - Neuro Symptoms/Deficit Medical Decision Making Medical decision making: Differential diagnosis including but not limited to and based on the above HPI, review of systems and physical exam: Concern for acute stroke. CT of the head without contrast and a CTA of the head and neck were ordered. Lab Review: Laboratory results were reviewed and interpreted by myself the emergency room physician. Lab work is basically unremarkable. CT head: No acute intracranial process. no intracranial hemorrhage, no evidence of infarct. no evidence of acute fracture.This was reviewed and interpreted by myself the ER physician. CTA of the head and neck: No stenosis. A small plaque in the right carotid. Otherwise normal. This was reviewed and interpreted by myself the emergency room physician. I also reviewed the results posted by the radiologist. NIH Stroke Scale/Score (NIHSS) from [employer] on 03/30/2023 All calculations should be rechecked by clinician prior to use RESULT SUMMARY: 4 points NIH Stroke Scale INPUTS: 1A: Level of consciousness ?> 0 = Alert; keenly responsive 1B: Ask month and age ?> 0 = Both questions right 1C: 'Blink eyes' & 'squeeze hands' ?> 0 = Performs both tasks 2: Horizontal extraocular movements ?> 0 = Normal 3: Visual solis ?> 0 = No visual loss 4: Facial palsy ?> 0 = Normal symmetry 5A: Left arm motor drift ?> 0 = No drift for 10 seconds 5B: Right arm motor drift ?> 1 = Drift, but doesn't hit bed 6A: Left leg motor drift ?> 0 = No drift for 5 seconds 6B: Right leg motor drift ?> 1 = Drift, but doesn't hit bed 7: Limb Ataxia ?> 2 = Ataxia in 2 Limbs 8: Sensation ?> 0 = Normal; no sensory loss 9: Language/aphasia ?> 0 = Normal; no aphasia 10: Dysarthria ?> 0 = Normal 11: Extinction/inattention ?> 0 = No abnormality Consultation with Dr. Ruddy Cat. He was stroke neurologist by telephone consultation. Discussed the patient with him and he recommends TNKase. Consultation was at 10:10 AM. Reexamination: Patient says he is feeling quite a bit better. He still has some mild right horizontal nystagmus. Weakness seems to be improving in his extremities. He is no longer nauseous. No increased work of breathing. No altered mental status. Lab Data 03/30/23 10:00 03/30/23 10:[address] 03/30/23 09:26 IMPRESSION: No acute intracranial abnormality. ASSESSMENT: ASPECTS ([place] Stroke Program Early CT Score) is 10. Head/Neck CTA 03/30/23 09:26 IMPRESSION: No large vessel stenosis or occlusion. IMPRESSION: 1. No significant carotid or vertebral artery stenosis. 2. Mild ulcerated plaque at the right carotid bulb. REFERENCES: NASCET CRITERIA. The degree of stenosis in the cervical segment of the internal carotid artery is based on NASCET criteria. Normal is no stenosis. Mild is less than 50% stenosis. Moderate is 50-69% stenosis. Severe is 70% to 99% stenosis. Total occlusion is no detectable patent lumen. Laboratory Results WBC 15.08 10^3/uL (3.29-11.43) H 03/30/23 10:00 RBC 4.72 10^6/uL (3.85-5.65) 03/30/23 10:00 Hgb 14.70 g/dL (11.27-16.99) 03/30/23 10:00 Hct 43.0 % (37-53) 03/30/23 10:00 MCV 91.1 fl (82-101) 03/30/23 10:00 MCH 31.1 pg (27-33) 03/30/23 10:00 MCHC 34.2 g/dL (30-55) 03/30/23 10:00 RDW 11.9 % (12.1-15.1) L 03/30/23 10:00 Plt Count 238 10^3/cmm (157-399) 03/30/23 10:00 MPV 9.4 fL (7.4-10.4) 03/30/23 10:00 Neut % (Auto) 87.1 % 03/30/23 10:00 Lymph % (Auto) 7.0 % 03/30/23 10:00 [place] % (Auto) 4.4 % 03/30/23 10:00 Eos % (Auto) 0.3 % 03/30/23 10:00 Baso % (Auto) 0.5 % 03/30/23 10:00 Neut # (Auto) 13.16 10^3/uL (1.8-7.7) H 03/30/23 10:00 Lymph # (Auto) 1.1 10^3/uL (0.8-4.8) 03/30/23 10:00 [place] # (Auto) 0.7 10^3/uL (0.2-0.9) 03/30/23 10:00 Eos # (Auto) 0.0 10^3/uL (0.0-0.8) 03/30/23 10:00 Baso # (Auto) 0.1 10^3/uL (0.0-0.1) 03/30/23 10:00 Nucleated RBC % (auto) 0 % 03/30/23 10:00 Nucleated RBCs # 0.0 /100WBC 03/30/23 10:00 PT 14.10 SECONDS (12.1-14.9) 03/30/23 10:00 INR 1.06 (0.8-1.2) 03/30/23 10:00 APTT 24.6 SECONDS (23.9-36.7) 03/30/23 10:00 Sodium 137 mmol/L (136-145) 03/30/23 10:00 Potassium 3.5 mmol/L (3.5-5.1) 03/30/23 10:00 Chloride 103 mmol/L (98-107) 03/30/23 10:00 Carbon Dioxide 24 mmol/L (22-29) 03/30/23 10:00 Anion Gap 13.5 (5-19) 03/30/23 10:00 BUN 20 mg/dL (6-20) 03/30/23 10:00 Creatinine 1.1 mg/dL (0.7-1.2) 03/30/23 10:00 GFR Calculation 69.2 mL/min (90-130) L 03/30/23 10:00 Glucose 154 mg/dL (65-115) H 03/30/23 10:00 POC Glucose 141 mg/dL (70-110) H 03/30/23 09:44 Calculated Osmolality 290 mOsm/kg (285-295) 03/30/23 10:00 Lactic Acid 2.3 mmol/L (0.5-2.2) H 03/30/23 10:00 Calcium 8.3 mg/dL (8.5-10.5) L 03/30/23 10:00 Total Bilirubin 0.5 mg/dL (0.15-1.2) 03/30/23 10:00 AST 15 U/L (0-40) 03/30/23 10:00 ALT 22 U/L (0-41) 03/30/23 10:00 Alkaline Phosphatase 51 U/L (40-130) 03/30/23 10:00 Total Protein 6.2 g/dL (6.6-8.7) L 03/30/23 10:00 Albumin 3.9 g/dL (3.5-5.2) 03/30/23 10:00 Globulin 2.3 g/dL (1.3-4.6) 03/30/23 10:00 Influenza Type A Ag negative (Negative) 03/30/23 10:38 Influenza Type B Ag negative (Negative) 03/30/23 10:38 XR interpretation done by ED provider, pending radiology final review Other Data -Stroke neurology consultation, thrombolytic given as instructed. -I discussed the patient with the hospitalist on-call who is admitting the patient. - Discussed findings and plan with patient. Answered any questions. - All laboratory values were reviewed and interpreted personally by myself, the ER physician - All imaging was reviewed and interpreted personally by myself, the ER physician. - Evaluation and treatment of this problem were appropriate in the emergency setting I spent a total of >35 minutes of critical care time managing the patient, independent of any other practitioner. The time involved in the performance of separately reportable procedures was not counted towards critical care time. Discharge Plan Discharge Patient Disposition: Admitted As Inpatient Clinical Impression: Cerebrovascular accident, Vertigo, Nystagmus Condition: Stable Prescriptions: No Action acetaminophen [Tylenol Extra Strength] 500 mg Tablet 1,000 mg PO PRN PRN (Reason: Pain) pantoprazole 40 mg tablet,delayed release (DR/EC) 40 mg PO QAM simvastatin 20 mg tablet 20 mg PO QAM hydrochlorothiazide 12.5 mg capsule 12.5 mg PO QAM Referrals: Lambert Serrano MD [Primary Care Provider] - Coding Level of Care Code ED Rolled [place] Lacer for Mook Griggs
[2023-03-30] MEDS: meclizine 25 mg tablet 50 MG PO (10:08)
--- NOTE | 2023-03-30 10:21 | PC.NURSE ---
Medication Delay: TNKase delayed d/t not being verified by pharmacy @1028
--- NOTE | 2023-03-30 10:24 | PC.NURSE ---
Medication Delay: TNKase order will not allow this nurse to pull from Pyxis, states problem with ordered units @1022. this nurse contacted pharmacy @1025, Dilshad states he will be check on order.
[2023-03-30 10:25] LABS: Alanine Aminotransferase 22 U/L (0-41); Albumin Level 3.9 g/dL (3.5-5.2); Alkaline Phosphatase 51 U/L (40-130); Anion Gap 13.5 (5-19); Aspartate Amino Transferase 15 U/L (0-40); Blood Urea Nitrogen 20 mg/dL (6-20); Calcium 8.3 mg/dL (8.5-10.5); Carbon Dioxide 24 mmol/L (22-29); Chloride 103 mmol/L (98-107); Globulin 2.3 g/dL (1.3-4.6); Glomerular Filtration Rate 69.2 mL/min (90-130); Glucose 154 mg/dL (65-115); Lactic Sepsis W/Reflex 2.3 mmol/L (0.5-2.2); Osmolality Calculated 290 mOsm/kg (285-295); Potassium 3.5 mmol/L (3.5-5.1); Sodium 137 mmol/L (136-145); Total Bilirubin 0.5 mg/dL (0.15-1.2); Total Protein 6.2 g/dL (6.6-8.7)
[2023-03-30 10:32] LABS: INR 1.06 (0.8-1.2); Partial Thromboplastin Time 24.6 SECONDS (23.9-36.7)
[2023-03-30] MEDS: tenecteplase 50mg Kit (STROKE) 23 MG IVP (10:33)
[2023-03-30 11:00] LABS: Influenza A by IFA negative (Negative); Influenza B by IFA negative (Negative)
[2023-03-30 11:48] LABS: Reflex Lactate Order REFLEX LACTIC ORDERD
--- NOTE | 2023-03-30 12:11 | MRR_ITS ---
PROCEDURE INFORMATION: Exam: MR Head Without Contrast Exam date and time: 03/30/2023 12:41 PM Age: 57 years old Clinical indication: Dizziness and weakness, extremity; Right; Additional info: CVA TECHNIQUE: Imaging protocol: Magnetic resonance imaging of the head without contrast. COMPARISON: CT angio headneck* [id number] 03/30/2023 9:33 AM FINDINGS: Brain: Normal. No acute infarct. No hemorrhage. No significant white matter disease. No edema. Cerebral ventricles: Normal. No ventriculomegaly. Bones/joints: Unremarkable. Paranasal sinuses: Normal as visualized. No acute sinusitis. Mastoid air cells: Normal as visualized. No mastoid effusion. Orbital cavities: Unremarkable. Soft tissues: Unremarkable. MR/MR head wo con* [id number] IMPRESSION: No acute findings.
[2023-03-30 12:30] LABS: Adenovirus Not Detected (NOT DETECT); Chlamydia Pneumoniae Not Detected (NOT DETECT); Coronavirus 229E,HKU1,NL63,OC4 Not Detected (NOT DETECT); Human Metapneumovirus Not Detected (NOT DETECT); Human Rhinovirus/Enterovirus Not Detected (NOT DETECT); Influenza A Not Detected (NOT DETECT); Influenza A H1 Not Detected (NOT DETECT); Influenza A H1-2009 Not Detected (NOT DETECT); Influenza A H3 Not Detected (NOT DETECT); Influenza B Not Detected (NOT DETECT); Mycoplasma Pneumoniae Not Detected (NOT DETECT); Parainfluenza Virus Type 1 Not Detected (NOT DETECT); Parainfluenza Virus Type 2 Not Detected (NOT DETECT); Parainfluenza Virus Type 3 Not Detected (NOT DETECT); Parainfluenza Virus Type 4 Not Detected (NOT DETECT); Respiratory Syncytial Virus A Not Detected (NOT DETECT); Respiratory Syncytial Virus B Not Detected (NOT DETECT); SARS-COV-2 Not Detected (NOT DETECT)
--- NOTE | 2023-03-30 12:53 | P.HP_ITS ---
Providers/Chief Complaint 2 Admitting Physician: Ya Quiles MD Primary Care Provider: Lambert Serrano MD Chief Complaint: dizzy , neck pain History of Present Illness Benedicto Brennan is a 57 year old male who woke up for sunrise today, patient is stating that he was doing laundry around 7:30 AM when he started feeling dizzy and burning sensation all over his body when he told his about his symptoms he was brought to the hospital right away, as per the patient was extremely weak on the right side, he was helped by the and his son to get in the car, his anion score is 4, currently his code stroke team he was a candidate for TNKase that was given around 9 AM, at the time of my evaluation NIH is 0. CT head CTA head and neck unremarkable, I will get an MRI head to rule out posterior circulation stroke. Patient is endorsing right-sided neck pain, he does not have any history of cardiac disease coronary disease CHF WI cancer he does not smoke drinks alcohol occasionally. Mild ulcerative plaque right carotid bulb Review of Systems 2 Const: Denies: fever(s) Eyes: Denies: change in vision ENMT: Denies: throat pain Card: Denies: chest pain Resp: Denies: dyspnea GI: Denies: abdominal pain : Denies: flank pain Musc: Reports: neck pain Skin/Breast: Denies: rash Neuro: Denies: headache(s) Medications/Allergies Home Medications Medication Instructions Recorded Confirmed Last Taken Type acetaminophen 500 mg tablet 1,000 mg PO PRN PRN Pain 08/21/20 03/30/23 Unknown History (Tylenol Extra Strength) hydrochlorothiazide 12.5 mg capsule 12.5 mg PO QAM 08/21/20 03/30/23 08/21/20 08:00 History pantoprazole 40 mg tablet,delayed 40 mg PO QAM 08/21/20 03/30/23 08/21/20 08:00 History release simvastatin 20 mg tablet 20 mg PO QAM 08/21/20 03/30/23 08/21/20 08:00 History Allergies Allergy/AdvReac Type Severity Reaction Status Date / Time azithromycin [From Zithromax] Allergy ALGY-Swell Verified 01/10/22 01:27 Lip/Tongue/Throat PFSH Acute 2 PFSH: Medical History No pertinent past medical history Social History Smoking and tobacco/nicotine status: former use of tobacco/nicotine Vitals/I&O/Wt Last Vital Signs Pulse 68 03/30/23 12:07 Resp 12 03/30/23 12:07 BP 141/88 03/30/23 12:07 Pulse Ox 96 03/30/23 12:07 Weight last 48 hrs Weight 90.718 kg Physical Exam 2 Narrative: NIH 0 Awake and alert 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 consultant slightly weaker than left otherwise unremarkable exam Pleasant cooperative GCS 15 S1, S2 Currently on room air Blood pressure 140s is at the bedside Abdomen soft Data 03/30/23 10:00 03/30/23 10:00 A&P Assessment and plan (1) HTN (hypertension): (2) Vertigo: (3) Cerebrovascular accident: (4) Nystagmus: Plan Posterior circulation stroke Symptoms were dizziness, right-sided weakness which improved after TNKase NIH 0 at the time of evaluation It was 4 1 ER called code stroke patient is status post TNKase Only a history of hypertension Permissive hypertension for next 24 hours I will request head MRI Request homocystine, B12, TSH, echo with bubble study, telemetry study overnight Protein C&S level No previous history of stroke CHF cardiac disease patient is active for his age, works at a [employer] center full-time Full code Cardiac diet Attestations 2 Medical Necessity Statement*: Patient will be discharged within 48 hours Diagnoses HTN (hypertension) I10 Vertigo R42 Cerebrovascular accident I63.9 Nystagmus H55.00
--- NOTE | 2023-03-30 14:21 | USCV_ITS ---
Benedicto Brennan Age: 57 Gender: M : 1965 Exam Date: 03/30/2023 15:34 Ordering Phys: Ya Quiles MD Technologist: Randall Morales [place] [facility] [place]: cva BP: 141 / 88 HR: Rhythm: Sinus Technical Quality: Adequate MEASUREMENTS (Male / Female) Normal Values 2D ECHO LVOT Diameter 2.1 cm LV Ejection Fraction MOD 2C 58.4 % M-MODE LA Ao Ratio MM 1.2 AV Cusp Separation MM 2.0 cm DOPPLER AV Peak Velocity 130.0 cm/s AV Area Cont Eq vti 4.2 cm squared MV Peak Velocity 293.0 cm/s MV Area PHT 5.3 cm squared Mitral E to A Ratio 1.1 TV Peak Velocity 134.5 cm/s TR Peak Velocity 178.0 cm/s TR Peak Gradient 12.7 mmHg Right Atrial Pressure 8.0 mmHg Pulmonary Artery Systolic Pressu 20.7 mmHg PV Peak Velocity 107.2 cm/s FINDINGS Left Ventricle Normal left ventricular size, systolic function and wall thickness, with no regional wall motion abnormalities. Normal left ventricular wall thickness. Normal diastolic filling pattern. Left ventricular ejection fraction is estimated at 65 %. Right Ventricle Normal right ventricular size and systolic function. Normal right ventricular systolic pressure. Right Atrium The right atrium is normal in size. Left Atrium The left atrium is normal in size. Mitral Valve Structurally normal mitral valve. Trace mitral valve regurgitation. Aortic Valve Structurally normal aortic valve without significant sclerosis or stenosis. There is no aortic regurgitation. Tricuspid Valve Structurally normal tricuspid valve. Mild tricuspid valve regurgitation. Pulmonic Valve Pulmonic valve not well visualized. Pericardium Normal pericardium without effusion. Aorta Normal ascending aorta dimension. IVC Inferior vena cava not visualized. CONCLUSIONS Normal left ventricular size, systolic function and wall thickness, with no regional wall motion abnormalities. Normal left ventricular wall thickness. Normal diastolic filling pattern. Left ventricular ejection fraction is estimated at 65 %. Structurally normal mitral valve. Trace mitral valve regurgitation. There are no prior echocardiogram studies to compare. Dr. Sabino Mcneill MD (Electronically Signed) Final Date: 30 March 2023 20:35 S
[2023-03-30 14:27] LABS: Lactic Acid level (Lactate) 0.9 mmol/L (0.5-2.2)
[2023-03-30 15:53] LABS: Homocysteine 9.74; Thyroid Stimulating Hormone 1.62 uIU/mL (0.27-4.20); Vitamin B12 474 pg/mL (232-1245)
[2023-03-30 16:16] LABS: Estmated Average Glucose 117; Hemoglobin A1C 5.7 % (4.0-6.0)
[2023-03-30 20:42] LABS: Glucose Point of Care 101 mg/dL (70-110)
--- NOTE | 2023-03-30 21:46 | PC.NURSE ---
Shift Change This RN and dayshift RN at bedside for report. NIH preformed : pt scored 0. Pt states no pain, no tingling, no numbness, no photosensitivity. IV patent, VSS, at bedside. Complete chart review with pt and .
[2023-03-31] VITALS (36 sets, daily range): BP systolic 115–161; BP diastolic 61–96; PULSE 56–89; RESP 10–23; TEMP 36.6–36.9; O2SAT 94–97
[2023-03-31 05:19] LABS: Magnesium 2.1 mg/dL (1.7-2.3)
[2023-03-31] MEDS: atorvastatin 40 mg Tablet 80 MG PO (08:23)
[2023-03-31] MEDS: lisinopril 10 mg Tablet PO (08:23)
--- NOTE | 2023-03-31 09:10 | P.DS_ITS ---
Discharge Providers Date of Admission: 03/30/23 14:21 Date of Discharge: March 31, 2023 Attending Provider at Admission: Ya Quiles MD Attending Provider at Discharge: Ya Quiles MD Primary Care Provider: Lambert Serrano MD Diagnoses at Discharge Discharge Diagnosis (1) HTN (hypertension): Status: Acute (2) Vertigo: Status: Acute (3) Cerebrovascular accident: Status: Acute (4) Nystagmus: Status: Acute Reason for Visit Reason for Visit: dizzy , neck pain Hospital Course Hospital Course 57-year-old male who presented to the hospital on 03/30 with chief complaint of right-sided weakness and dizziness and leg weakness he was announced overhead full code stroke, NIH 4: TNKase was given by the ER physician on approval of on- call neurology team [facility] neurology, by the time I saw patient patient had NIH 0, patient's symptoms had improved significantly, patient only risk factor was hypertension, he does not have diabetes, CHF coronary disease, I requested protein C, protein S, antiphospholipid antibody test Rester panel was negative, patient remained afebrile however his white count is around 15,000 on day of discharge, patient experiencing nasal discharge without any fever or headache no signs of meningitis I will like to repeat his CBC in 1 to 2 days, will give him referral to see Dr. Que Aguirre, add aspirin along atorvastatin. His lactic acid was 2.3 on admission which improved with IV fluid hydration. He did not meet sepsis criteria remained afebrile, does not have any active signs of infection. EF 65% Physical Exam Narrative: Nonfocal neuroexam No tenderness on spine or paraspinal area No sign of meningitis No focal tenderness around sinus areas GCS 15 afebrile hemodynamically stable currently on room air at the bedside NIH 0 Discharge Data Studies Completed and Pending Completed Studies During Hospitalization Category Date Time Status CT head wo con* [id number] Stat Cat Scan 03/30/23 09:26 Completed CTA head neck [CT angio headneck* [id number]] Stat Cat Scan 03/30/23 09:26 Completed MR head wo con* [id number] Stat MRI 03/30/23 12:11 Completed CV. echo w/w bubble cont [id number] Routine Ultrasound 03/30/23 14:21 Completed Pending at discharge Category Date Time Status PROTEIN C, ACTIVITY Routine Lab 03/30/23 18:13 Received PROTEIN S, ACTIVITY Routine Lab 03/30/23 18:13 Received Radiology Impressions Head CT 03/30/23 09:26 IMPRESSION: No acute intracranial abnormality. ASSESSMENT: ASPECTS ([place] Stroke Program Early CT Score) is 10. Head/Neck CTA 03/30/23 09:26 IMPRESSION: No large vessel stenosis or occlusion. IMPRESSION: 1. No significant carotid or vertebral artery stenosis. 2. Mild ulcerated plaque at the right carotid bulb. REFERENCES: NASCET CRITERIA. The degree of stenosis in the cervical segment of the internal carotid artery is based on NASCET criteria. Normal is no stenosis. Mild is less than 50% stenosis. Moderate is 50-69% stenosis. Severe is 70% to 99% stenosis. Total occlusion is no detectable patent lumen. Head MRI 03/30/23 12:11 IMPRESSION: No acute findings. Laboratory Results WBC 15.08 10^3/uL (3.29-11.43) H 03/30/23 10:00 RBC 4.72 10^6/uL (3.85-5.65) 03/30/23 10:00 Hgb 14.70 g/dL (11.27-16.99) 03/30/23 10:00 Hct 43.0 % (37-53) 03/30/23 10:00 MCV 91.1 fl (82-101) 03/30/23 10:00 MCH 31.1 pg (27-33) 03/30/23 10:00 MCHC 34.2 g/dL (30-55) 03/30/23 10:00 RDW 11.9 % (12.1-15.1) L 03/30/23 10:00 Plt Count 238 10^3/cmm (157-399) 03/30/23 10:00 MPV 9.4 fL (7.4-10.4) 03/30/23 10:00 Neut % (Auto) 87.1 % 03/30/23 10:00 Lymph % (Auto) 7.0 % 03/30/23 10:00 [place] % (Auto) 4.4 % 03/30/23 10:00 Eos % (Auto) 0.3 % 03/30/23 10:00 Baso % (Auto) 0.5 % 03/30/23 10:00 Neut # (Auto) 13.16 10^3/uL (1.8-7.7) H 03/30/23 10:00 Lymph # (Auto) 1.1 10^3/uL (0.8-4.8) 03/30/23 10:00 [place] # (Auto) 0.7 10^3/uL (0.2-0.9) 03/30/23 10:00 Eos # (Auto) 0.0 10^3/uL (0.0-0.8) 03/30/23 10:00 Baso # (Auto) 0.1 10^3/uL (0.0-0.1) 03/30/23 10:00 Nucleated RBC % (auto) 0 % 03/30/23 10:00 Nucleated RBCs # 0.0 /100WBC 03/30/23 10:00 PT 14.10 SECONDS (12.1-14.9) 03/30/23 10:00 INR 1.06 (0.8-1.2) 03/30/23 10:00 APTT 24.6 SECONDS (23.9-36.7) 03/30/23 10:00 D-Dimer 1.00 ug/mLFEU (0-0.59) H 03/30/23 13:47 Sodium 137 mmol/L (136-145) 03/30/23 10:00 Potassium 3.5 mmol/L (3.5-5.1) 03/30/23 10:00 Chloride 103 mmol/L (98-107) 03/30/23 10:00 Carbon Dioxide 24 mmol/L (22-29) 03/30/23 10:00 Anion Gap 13.5 (5-19) 03/30/23 10:00 BUN 20 mg/dL (6-20) 03/30/23 10:00 Creatinine 1.1 mg/dL (0.7-1.2) 03/30/23 10:00 GFR Calculation 69.2 mL/min (90-130) L 03/30/23 10:00 Glucose 154 mg/dL (65-115) H 03/30/23 10:00 POC Glucose 101 mg/dL (70-110) 03/30/23 20:36 Estimat Average Glucose 117 03/30/23 10:00 Hemoglobin A1c 5.7 % (4.0-6.0) 03/30/23 10:00 Calculated Osmolality 290 mOsm/kg (285-295) 03/30/23 10:00 Lactic Acid 2.3 mmol/L (0.5-2.2) H 03/30/23 10:00 Lactic Acid (Sepsis) 0.9 mmol/L (0.5-2.2) 03/30/23 13:47 Calcium 8.3 mg/dL (8.5-10.5) L 03/30/23 10:00 Magnesium 2.1 mg/dL (1.7-2.3) 03/31/23 03:56 Total Bilirubin 0.5 mg/dL (0.15-1.2) 03/30/23 10:00 AST 15 U/L (0-40) 03/30/23 10:00 ALT 22 U/L (0-41) 03/30/23 10:00 Alkaline Phosphatase 51 U/L (40-130) 03/30/23 10:00 Total Protein 6.2 g/dL (6.6-8.7) L 03/30/23 10:00 Albumin 3.9 g/dL (3.5-5.2) 03/30/23 10:00 Globulin 2.3 g/dL (1.3-4.6) 03/30/23 10:00 Vitamin B12 474 pg/mL (232-1245) 03/30/23 10:00 Homocysteine 9.74 03/30/23 10:00 TSH 1.62 uIU/mL (0.27-4.20) 03/30/23 10:00 Coronavirus 229E (PCR) Not detected (NOT DETECT) 03/30/23 10:38 Influenza Type A Ag negative (Negative) 03/30/23 10:38 Influenza Type B Ag negative (Negative) 03/30/23 10:38 SARS-CoV-2 (PCR) Not detected (NOT DETECT) 03/30/23 10:38 Vitals Last Vital Signs Temp 98.4 F 03/31/23 07:58 Pulse 61 03/31/23 06:34 Resp 10 L 03/31/23 04:50 BP 116/61 03/31/23 04:50 Pulse Ox 95 03/31/23 04:50 O2 Del Method Room Air 03/31/23 04:00 Discharge Plan Discharge Patient Disposition: Home Condition: Stable Prescriptions: New atorvastatin 40 mg Tablet 80 mg PO DAILY Qty: 90 2RF lisinopril 10 mg Tablet 5 mg PO DAILY Qty: 30 0RF Rx Instructions: avoid if blood pressure below 130/80mmhg aspirin 81 mg tablet,delayed release (DR/EC) 81 mg PO DAILY Qty: 90 0RF amoxicillin-pot clavulanate 875-125 mg tablet 1 tab PO BID Qty: 10 0RF Continued acetaminophen [Tylenol Extra Strength] 500 mg Tablet 1,000 mg PO PRN PRN (Reason: Pain) pantoprazole 40 mg tablet,delayed release (DR/EC) 40 mg PO QAM hydrochlorothiazide 12.5 mg capsule 12.5 mg PO QAM Discontinued simvastatin 20 mg tablet 20 mg PO QAM Discharge Orders: Discharge Order (Routine); Ordered 03/31/23 Ordered By: Ya Quiles Other Ambulatory Orders: Complete Blood Count w/Auto (Routine) Timeframe: 2 Days Location: Determined by Patient Ordered By: Ya Quiles Referrals: Que Aguirre MD [Physician] - 1-3 days Lambert Serrano MD [Primary Care Provider] - Patient Instructions: Opioid Safety Discharge Attestations Time Spent in Discharge Care*: greater than 30 min Quality Metrics Clinical Quality Measures [ No reported AMI, CVA or VTE this stay] Coding Level of Care Code Acute Code for Chg Fwd Diagnoses HTN (hypertension) I10 Vertigo R42 Cerebrovascular accident I63.9 Nystagmus H55.00
[2023-03-31 09:49] LABS: Erythrocyte Sedimentation Rate 1 mm/hr (0-10)
--- NOTE | 2023-03-31 10:28 | PC.NURSE ---
Patient provided with discharge education verbally and written with at bedside. Patient and S/O had no questions. Medications sent to pharmacy. Follow up appointments and blood work educated. 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 Activity restrictions reviewed, Verbalized understanding of teaching.
--- NOTE | 2023-03-31 10:38 | PC.OT ---
OT order received. Patient discharging today. OT spoke with patient about concerns at discharge in which patient reported none. Patient's family was in room and was in agreement with discharge. No OT warranted at this time. Justin Preciado, OTR/L
[2023-04-04 04:04] LABS: PROTEIN C, ACTIVITY 100 % normal (70-180)
[2023-04-04 20:00] LABS: PROTEIN S, ACTIVITY 66 % normal (70-150)
== END 2023-03-31 10:31 | disposition home or self-care (01) ==
LOC: ER 11:57 → ICU 12:57
PROVIDERS: Admitting Provider Internal Medicine; Emergency Provider Emergency Medicine; PCP Family Medicine; Visit Provider Internal Medicine
DX: I63.9 Cerebral infarction, unspecified (principal); R29.704 NIHSS score 4; I10 Essential (primary) hypertension; R42 Dizziness and giddiness; H55.00 Unspecified nystagmus; Z87.891 Personal history of nicotine dependence
CPT/HCPCS: 36416; 70450; 70496; 70498; 70551; 80053; 82607; 82962; 83036; 83090; 83605; 83735; 84443; 85025; 85303; 85306; 85378; 85610; 85651; 85730; 86140; 87635; 87804; 92523; 92610; 93005; 96374; 96376; 97161; 99285; C8929; G0378; J3101; J8597; Q9967

== ENCOUNTER 2023-05-02 20:00 | Outpatient (CLI) | payer BC, SELFPAY | END 2023-05-02 20:01 | disposition home or self-care (01) | LOC: SLEEP 05-03 04:45 | PROVIDERS: PCP Family Medicine; Visit Provider Specialist | DX: G47.10 Hypersomnia, unspecified (principal) | CPT/HCPCS: 95810 ==

== ENCOUNTER 2023-07-31 07:24 | Outpatient (CLI) | payer BC, SELFPAY ==
--- NOTE | 2023-07-31 07:28 | ECG_ITS ---
[facility] Test Date: 2023-07-31 Pat Name: Benedicto Brennan Department: Room: Gender: Male Medical Practitioners: : 1965 Requested By: Daija Alexandre Order Number: [id number] Gay MD: YAMIL TAYLOR Interpretive Statements NAME OF STUDY: EXERCISE SESTAMIBI STRESS TEST INDICATION: UA, NOTE: Please note that this is the electrocardiogram portion of the Lexiscan/Sestamibi stress test. The perfusion scan will be documented separately. DATA: Baseline heart rate was 65 beats per minute. Baseline blood pressure was 144/82 millimeters of mercury. Target heart rate was 163. Maximum heart rate achieved was 155. which was 95 % of the predicted target heart rate. Maximum blood pressure was 200/90 millimeters of mercury. The reason for ending the test was completion of the protocol. The patient did not experience any symptoms. ELECTROCARDIOGRAM: BASELINE: Sinus rhythm. Normal axis. Interventricular conduction delay, otherwise no ST-T changes suggestive of ischemia noted. No arrhythmia noted. EXERCISE: After Lexiscan injection, no ST-T changes suggestive of ischemic noted. No arrhythmia noted. CONCLUSION: Please note due to baseline abnormality of the EKG specificity and sensitivity of the EKG portion of LexiScan MIBI stress test will be low 1. EKG not suggestive of ischemia 2. Lexiscan injection unremarkable. 3. Perfusion scan will be documented separately. Electronically Signed On 07-31-2023 21:22:58 CDT by YAMIL TAYLOR [id number]
--- NOTE | 2023-07-31 07:28 | NMCV_ITS ---
NM obed perf SPECT r/s* [id number] Benedicto Brennan Age: 58 Gender: M : 1965 Exam Date: 07/31/2023 08:10 Ordering Phys: Daija Alexandre MD Technologist: LORENZO Pisano Exam Location: [facility] Indications: Unstable angina STRESS TEST Please see separate stress [facility] for full findings IMAGE PROTOCOL Rest/Stress 1 Exercise Day Radiopharmaceutical Dose (mCi) Administration Site Administered by Rest: Tc-99m 10.9 IV LORENZO Pisano Sestamibi Stress:Tc-99m 32.7 IV LORENOZ Pisano Sestamibi Rest: 31-Jul-2023 60 Discovery 630 Stress: 31-Jul-2023 30 Discovery 630 Radiopharmaceutical was injected at 86images obtained in supine and prone position. % maximum heart rate. SPECT RESULTS Technical Quality: Excellent Raw Data Analysis: Normal Image Corrections: No attenuation or motion correction applied Summed Stress Score: 2 Summed Rest Score: 5 Summed Difference Score: 1 PERFUSION FINDINGS Small area of mild reversibility in the mid to distal inferior wall improved on prone stress images are suggestive of attenuation artifact. No significant ischemia noted. FUNCTIONAL RESULTS (calculated via Gated SPECT) Stress Image LV EF (%): 77 Stress EDV (mL):93 TID: 0.82 Stress ESV (mL):21 FUNCTIONAL FINDINGS: There is normal left ventricular systolic function. IMPRESSIONS Myocardial perfusion imaging is normal. Ya Andrea MD (Electronically Signed) Final Date: 31 July 2023 11:36 S
[2023-07-31 07:39] VITALS: BMI 27.8
[2023-07-31 09:07] VITALS: BP 171/90; PULSE 97
== END 2023-07-31 07:25 | disposition home or self-care (01) ==
PROVIDERS: PCP Family Medicine; Visit Provider Specialist
DX: R94.39 Abnormal result of other cardiovascular function study (principal)
CPT/HCPCS: 36415; 78452; 93017; A9500

== ENCOUNTER → 2023-08-02 16:05 | Outpatient (BNVA) | payer BC, SELFPAY | PROVIDERS: PCP Family Medicine; Visit Provider Specialist | DX: I63.539 Cerebral infarction due to unspecified occlusion or stenosis of unspecified posterior cerebral artery (principal); D72.829 Elevated white blood cell count, unspecified; I20.0 Unstable angina; G43.019 Migraine without aura, intractable, without status migrainosus | CPT/HCPCS: 85025; 85306 ==

== ENCOUNTER 2024-11-28 11:23 | Observation (INO) | payer BC, SELFPAY ==
[2024-11-28] VITALS (21 sets, daily range): BP systolic 108–158; BP diastolic 69–100; PULSE 55–94; RESP 12–21; TEMP 36.7–36.9; O2SAT 92–99; BMI 29.2
--- NOTE | 2024-11-28 11:26 | XRR_ITS ---
PROCEDURE INFORMATION: Exam: XR Chest Exam date and time: 11/28/2024 11:36 AM Age: 59 years old Clinical indication: Pain; Chest pressure; Additional info: Chest pain TECHNIQUE: Imaging protocol: Radiologic exam of the chest. Views: 1 view. COMPARISON: CR XR chest 1V portable [id number] 01/10/2022 2:47 AM FINDINGS: Tubes, catheters and devices: Overlying monitor leads. Lungs: Unremarkable. No infiltrate/edema or consolidation. Pleural spaces: Unremarkable. No pleural effusion. No pneumothorax. Heart/Mediastinum: Unremarkable. No cardiomegaly. Bones/joints: Visualized osseous structures show no acute abnormality. XR/XR chest 1V portable [id number] IMPRESSION: No acute cardiopulmonary abnormality.
--- NOTE | 2024-11-28 11:26 | ECG_ITS ---
[facility] Test Date: 2024-11-28 Pat Name: Benedicto Brennan Department: Room: Gender: Male Information Assistant: : 1965 Requested By: Tricia Benavides Order Number: [id number] Gay MD: Dajuan Perrin M.D. Measurements Intervals [place] Rate: 97 P: 43 VA: 169 QRS: -14 QRSD: 95 T: 32 QT: 334 QTc: 426 Interpretive Statements SINUS RHYTHM WITH OCCASIONAL VENTRICULAR PREMATURE COMPLEXES INDETERMINATE AXIS INFERIOR MYOCARDIAL INFARCTION , OF INDETERMINATE AGE [40+ ms Q WAVE AND/OR ST/T ABNORMALITY IN II/aVF] Compared to ECG 03/30/2023 10:03:20 Ventricular premature complex(es) now present Indeterminate axis now present Myocardial infarct finding now present Electronically Signed On 11-28-2024 11:56:06 CDT by Dajuan Perrin M.D. [id number] [id number]
--- OUTSIDE RECORDS SUMMARY | 2024-11-28 11:28 | XMS_ITS | Clinical Summary ---
[facility] Organization [facility] Address [address] 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
--- OUTSIDE RECORDS SUMMARY | 2024-11-28 11:28 | XMS_ITS | Encounter Summary ---
Author Organization [employer] [facility] Address [address] [place] [address] Care Team Providers Care Nursing Techn Name Role Phone Unavailable Primary Care Provider Unavailabl e Encounter Details Date Type Department Care Team (Latest Contact Info) Description 04/28/2003 Outpatient Historical [facility] GENERAL SURGERY Love, Scottie Bowers MD [address] [id number] UNILAT INGUINAL HERNIA (Primary Dx) Social History Tobacco Use Types Packs/Day Years Used Date Smoking Tobacco: Never Assessed Sex and Gender Information Value Date Recorded Sex Assigned at Not on file 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
--- OUTSIDE RECORDS SUMMARY | 2024-11-28 11:28 | XMS_ITS | Data Portability ---
Author Organization [facility] [place] [facility] [place] [facility], José Miguel, [facility] Address [address] [facility] [address] [place] [address] Care Team Providers Care Manager Lean Name Role Phone PATRICIA LOZANO Primary Care Provider [phone] Assessment Encounter Date Assessment Date Assessment LastModified by Organization Details LastModified Time 04/17/2023 04/17/2023 His progress has been slower than he and I have expected. Regardless, his fatigue is very substantial still he will benefit from a slow transition back into work. We will keep him off work for 1 more week. Will then transition to part-time. If he does well part-time for 1 week we will transition to full-time work again. [email or web address] Not available 04/18/2023 09:42:03 Plan of Treatment Reminders Order Date Submit Date Provider Last Modified By Organization Details Last Modified Time Details Appointments None recorded. Lab TSH, serum or plasma 024 [facility] ([facility]), [address] [place], [address], 4 14:18:17 vitamin B12 + folate, serum or blood 024 [facility], [address] [place] [address] [address] [place], [address], 4 08:03:47 vitamin D, 25-hydrox y, total, serum 024 [facility], [address] [facility] [address], [address] [place], [address], 4 08:03:48 CBC 024 024 [facility], [address] [facility], [facility] [address], [place], [address], 4 13:37:10 CMP, serum or plasma 024 024 [facility], [address] [facility], [facility] [address], [place], [address], 4 14:30:08 Referral None recorded. Procedures None recorded. Surgeries None recorded. Imaging XR, hand, 3 or more view 025 025 [email or web address] [facility], [address] [place], [address], 5 00:28:02 Medication Orders Viagra 25 mg tablet 024 024 [facility], [address] [place], [address], 4 17:49:28 Patient TargetsNo targets recorded. Patient Instructions Encounter Date Encounter Id Patient Instructions Last Modified By Organization Details Last Modified Time 08/09/2024 [id number] X-ray no obvious fracture. Will send for over read. [email or web address] Not available 08/09/2024 09:43:23 Reason for Referral None Reported. Results Created Date Observation Date Name Description Value Unit Range Abnormal Flag Note LastModifiedBy Organization Detail LastModifiedTime 04/01/19 24 04/01/2023 CBC WBC 10.7 x10 4.5-10 .5 high Not Available [facility] [address] [facility] [address], [place], [address], 04/01/2023 16:57:39 04/01/19 24 04/01/2023 CBC RBC 5.59 x10 4.30-5 .90 Not Available [facility] [address] [facility], [place], [address], 04/01/2023 16:57:39 04/01/19 24 04/01/2023 CBC HGB 17.3 g/dL 13.5-1 8.0 Not Available [facility] [address] [facility], [place], [address], 04/01/2023 16:57:39 04/01/19 24 04/01/2023 CBC HCT 50.5 % 35.0-6 0.0 Not Available [facility] [address] [facility], [place], [address], 04/01/2023 16:57:39 04/01/19 24 04/01/2023 CBC MCV 90.4 fL 80.0-9 9.9 Not Available [facility] [address] [facility], [place], [address], 04/01/2023 16:57:39 04/01/19 24 04/01/2023 CBC MCH 31.0 pg 27.0-3 2.0 Not Available [facility] [address] [facility], [place], [address], 04/01/2023 16:57:39 04/01/19 24 04/01/2023 CBC MCHC 34.3 g/dL 32.0-3 6.0 Not Available [facility] [address] [facility], [place], [address], 04/01/2023 16:57:39 04/01/19 24 04/01/2023 CBC RDW 13.0 % 11.5-1 4.5 Not Available [facility] [address] [facility], [place], [address], 04/01/2023 16:57:39 04/01/19 24 04/01/2023 CBC plt 275.9 x10 150.0- 451.0 Not Available [facility] [address] [facility] [place], [address], 04/01/2023 16:57:39 04/01/19 24 04/01/2023 CBC lymphocytes % 17.5 % 20.0-5 0.0 low Not Available [facility] [address] [facility] [address], [place], [address], 04/01/2023 16:57:39 04/01/19 24 04/01/2023 CBC granulcytes % 74.3 % 30.0-7 0.0 high Not Available [facility] [address] [facility] [address], [place], [address], 04/01/2023 16:57:39 04/01/19 24 04/01/2023 CBC monocytes % 6.0 % 2.0-10 .0 Not Available [facility] [address] [facility] [address], [place], [address], 04/01/2023 16:57:39 04/01/19 24 04/01/2023 CBC granulcytes# 7.9 x10 Not Tigist ilable [facility] [address] [facility] [address], [place], [address], 04/01/2023 16:57:39 04/01/19 24 04/01/2023 CBC lymphocytes # 1.9 x10 Not Available [facility] [address] [address], [place], [address], 04/01/2023 16:57:39 04/01/19 24 04/01/2023 CBC monocytes # 0.6 x10 Not Avai lable [facility] [address] [facility] [address], [place], [address], 04/01/2023 16:57:39 07/01/19 24 07/01/2023 CBC WBC 7.7 x10 4.5-10 .5 Not Available [facility] [address] [facility] 1, [place], [address], 07/01/2023 13:37:10 07/01/19 24 07/01/2023 CBC RBC 4.98 x10 4.30-5 .90 Not Available [facility] [address] [facility], [place], [address], 07/01/2023 13:37:10 07/01/19 24 07/01/2023 CBC HGB 16.1 g/dL 13.5-1 8.0 Not Available [facility] [address] [facility], [place], [address], 07/01/2023 13:37:10 07/01/19 24 07/01/2023 CBC HCT 45.9 % 35.0-6 0.0 Not Available [facility] [address] [facility], [place], [address], 07/01/2023 13:37:10 07/01/19 24 07/01/2023 CBC MCV 92.2 fL 80.0-9 9.9 Not Available [facility] [address] [facility], [place], [address], 07/01/2023 13:37:10 07/01/19 24 07/01/2023 CBC MCH 32.3 pg 27.0-3 2.0 high Not Available [facility] [address] [facility], [place], [address], 07/01/2023 13:37:10 07/01/19 24 07/01/2023 CBC MCHC 35.1 g/dL 32.0-3 6.0 Not Available [facility] [address] [facility], [place], [address], 07/01/2023 13:37:10 07/01/19 24 07/01/2023 CBC RDW 13.3 % 11.5-1 4.5 Not Available [facility] [address] [facility], [place], [address], 07/01/2023 13:37:10 07/01/19 24 07/01/2023 CBC plt 253.9 x10 150.0- 451.0 Not Available [facility] [place] [facility] [address] [place] [facility], [place], [address], 07/01/2023 13:37:10 07/01/19 24 07/01/2023 CBC lymphocytes % 19.3 % 20.0-5 0.0 low Not Available [facility] [address] [address], [place], [address], 07/01/2023 13:37:10 07/01/19 24 07/01/2023 CBC granulcytes % 71.1 % 30.0-7 0.0 high Not Available [facility] [address] [facility] [address], [place], [address], 07/01/2023 13:37:10 07/01/19 24 07/01/2023 CBC monocytes % 6.4 % 2.0-10 .0 Not Available [facility] [address] [address], [place], [address], 07/01/2023 13:37:10 07/01/19 24 07/01/2023 CBC granulcytes# 5.5 x10 Not Tigist ilable [facility] [place] [facility] [address] [address], [place], [address], 07/01/2023 13:37:10 07/01/19 24 07/01/2023 CBC lymphocytes # 1.5 x10 Not Available [facility] [address] [facility] [address], [place], [address], 07/01/2023 13:37:10 07/01/19 24 07/01/2023 CBC monocytes # 0.5 x10 Not Avai lable [facility] [address] [facility] [address], [place], [address], 07/01/2023 13:37:10 07/01/19 24 07/01/2023 CMP (MALE ) glucose 123.0 mg/dL 60.0-9 9.0 high Not Available [facility] [address] [facility] [address], [place], [address], 07/01/2023 14:30:08 07/01/19 24 07/01/2023 CMP (MALE ) BUN (blood urea nitrogen) 21.0 mg/dL 10.0-2 6.0 Not Available [facility] [address] [facility] [address], [place], [address], 07/01/2023 14:30:08 07/01/19 24 07/01/2023 CMP (MALE ) creatinine (serum) 1.1 mg/dL 0.4-1. 5 Not Available [facility] [address] [facility] [address], [place], [address], 07/01/2023 14:30:08 07/01/19 24 07/01/2023 CMP (MALE ) BUN/creatini ne ratio 19.63 ratio Not Available [facility] [address] [facility] [address], [place], [address], 07/01/2023 14:30:08 07/01/19 24 07/01/2023 CMP (MALE ) eGFR calculated 75.7 Not Available [facility] [address] [facility], [place], [address], 07/01/2023 14:30:08 07/01/19 24 07/01/2023 CMP (MALE ) total protein 7.2 g/dL 6.0-8. 5 Not Available [facility] [address] [facility] [address], [place], [address], 07/01/2023 14:30:08 07/01/19 24 07/01/2023 CMP (MALE ) total bilirubin 0.7 mg/dL 0.2-1. 3 Not Available [facility] [address] [facility] [address], [place], [address], 07/01/2023 14:30:08 07/01/19 24 07/01/2023 CMP (MALE ) albumin 4.5 g/dL 3.5-5. 5 Not Available [facility] [address] [facility] [address], [place], [address], 07/01/2023 14:30:08 07/01/19 24 07/01/2023 CMP (MALE ) globulin 2.7 calc Not Available [facility] [address] [address], [place], [address], 07/01/2023 14:30:08 07/01/19 24 07/01/2023 CMP (MALE ) AST (SGOT) 48.0 U/L 0.0-46 .0 high Not Available [facility] [place] [facility] [place] [facility] [address] [facility] [address], [place], [address], 07/01/2023 14:30:08 07/01/19 24 07/01/2023 CMP (MALE ) altv (SGPT) 42.0 U/L 13.0-6 9.0 normal Not Available [facility] [place] [facility] [address] [facility] [address], [place], [address], 07/01/2023 14:30:08 07/01/19 24 07/01/2023 CMP (MALE ) A/G ratio 1.7 ratio Not Available [facility] [address] [facility] [address], [place], [address], 07/01/2023 14:30:08 07/01/19 24 07/01/2023 CMP (MALE ) ALP phos 65.0 U/L 30.0-1 40.0 normal Not Available [facility] [place] [facility] [address] [facility] [address], [place], [address], 07/01/2023 14:30:08 07/01/19 24 07/01/2023 CMP (MALE ) calcium 9.4 mg/dL 8.4-10 .5 Not Available [facility] [place] [facility] [address] [facility] [address], [place], [address], 07/01/2023 14:30:08 07/01/19 24 07/01/2023 CMP (MALE ) sodium 140.0 mmol/ L 136.0- 145.0 Not Available [facility] [place] [facility] [address] [facility] [address], [place], [address], 07/01/2023 14:30:08 07/01/19 24 07/01/2023 CMP (MALE ) potassium 3.9 mmol/ L 3.5-5. 1 Not Available [facility] [place] [facility] [address] [facility] [address], [place], [address], 07/01/2023 14:30:08 07/01/19 24 07/01/2023 CMP (MALE ) chloride 104.0 mmol/ L 98.0-1 10.0 normal Not Available [facility] [place] [facility] [address] [facility] [address], [place], [address], 07/01/2023 14:30:08 07/01/19 24 07/01/2023 CMP (MALE ) C02 31.0 mmol/ L 22.0-3 1.0 Not Available [facility] [place] [facility] [address] [facility] [address], [place], [address], 07/01/2023 14:30:08 07/01/19 24 07/01/2023 CMP (MALE ) anion gap 5.0 calc Not Available [facility] [address] [facility] [address], [place], [address], 07/01/2023 14:30:08 07/01/19 24 07/01/2023 CMP (MALE ) osmolality 293.2 calc Not Available [facility] [address] [facility], [place], [address], 07/01/2023 14:30:08 07/01/19 24 07/02/2023 VITAM IN B12/F OLATE , SERUM PANEL vitamin B12 518 pg/mL 200-11 00 normal Not Available [facility] [address] [place], [address], 07/02/2023 08:03:47 07/01/19 24 07/02/2023 VITAM IN B12/F OLATE , SERUM PANEL folate, serum 19.3 NG/mL normal Refer ence Range Low: <3.4 Borde rline : 3.4-5 .4 Gisel l: >5.4 Not Available [employer] [facility] [address] [place], [address], 07/02/2023 08:03:47 07/01/19 24 07/02/2023 VITAM IN D,25- OH,TO JULIO,I A vitamin D,25-oh,tota l,ia 33 NG/mL 30-100 normal Vitam in D Statu s 25-OH Vitam in D: Defic iency : <20 ng/mL Insuf ficie ncy: 20 - 29 ng/mL Optim al: > or = 30 ng/mL For 25-OH Vitam in D testi ng on patie nts on D2-zamora pplem entat ion and patie nts for whom quant itati on of D2 and D3 fract ions is requi red, the [employer] Assur eD(TM ) 25-OH VIT D, (D2,D 3), LC/MS /MS is recom tulio d: order code 20112 (zuly ents >2yrs ). See Note 1 Note 1 For addit ional infor pop lal e refer to http: //[facility] elan restrepo ics.c om/fa q/FAQ 199 (This link is being provi ded for infor eulogio francis/ educlefty del rio purpo ses only. ) Not Available [employer] [facility] [address] [place], [address], 07/02/2023 08:03:48 07/01/19 24 07/01/2023 TSH, serum or plasm a TSH 1.69 uIU/m L 0.49-3 .82 Not Available [facility] [address] [place], [address], 07/01/2023 13:17:50 08/13/19 25 08/09/2024 XR, hand, 3 or more view No observ ation record ed. [email or web address] [facility] [address] [place], [address], 08/12/2024 10:55:08 Result Notes None recorded. Problems Name Problem SNOMED Code Status Onset Date Resolution Date Notes Provider Name and Address Organization Details Recorded Time Tubular adenomatous polyp of colon 659517174 Active 2022 ELAINA Romeo [facility] 3 09:54:38 Essential hypertension 57890569 Active 2022 TONIA beck [facility] 3 12:40:00 Gastroesophage al reflux disease 174584803 Active 2022 TONIA beck [facility] 3 12:40:08 History of cerebrovascula r accident 055782112 Active 2023 TONIA beck [facility] He[facility], L.L.CR[facility]h 4 16:07:47 Malaise and fatigue 922861751 Active 2023 Tapan Guy, [address] [place] [address], [address] , [facility], José Miguel 4 13:17:27 Laboratory test result abnormal 548646469 Active 2023 TONIA beck [facility], [place] 4 10:30:02 Protein S deficiency disease 7879648 Active 2023 TONIA beck [facility], [place] 4 10:30:03 Problem Notes None recorded. Procedures Surgical History Date Name Laterality Status Provider Name and Address Organization Details Recorded Time 10/05/19 23 Colonoscopy completed ELAINA MCNEAL [facility], José Miguel 10/16/2022 09:42:04 Imaging Results None recorded. Procedure Notes None recorded. Medical Equipment None Reported. Allergies Allergen ID Allergen Name Allergen Category Reaction Reaction Severity Criticality Documentation Date Start Date Code Code System Note Provider Name and Address Organization Details Recorded Time 40332 azithromy gelacio medicatio n hives Not available Not available 09/08/2022 22166 RxNorm React ion: Hives , Rash; Comme nt: Recor ded 01/11 9:00A M by Jimi geller, CMT, Offic e Visit ; Promo kerwin; Signi aida ce: *; ; Not Available [facility] 3 02:23:59 Medications Name Sig Start Date Stop Date Status Note LastModified by Organization Details LastModified Time atorvasta tin 40 mg tablet TAKE 1 TABLET BY MOUTH EVERY DAY 2024 active vo JR/tn Not Available Not Available Not Avai lable atorvasta tin 80 mg tablet TAKE 1 TABLET BY MOUTH EVERY DAY 06/29 completed pt states he takes a 4 mg Not Available Not Available Not Available hydrocodo ne 5 mg-acetam inophen 325 mg tablet take one BY MOUTH EVERY 6 HOURS NEEDED 09/13 completed Not Available Not Available Not Available lisinopri l 20 mg tablet Take 1 tablet every day by oral route. 04/16 completed Not Available Not Available Not Available ondansetr on HCl 4 mg tablet Take 1 tablet every 4 hours by oral route as needed. active Not Available Not Available No t Available prednison e 20 mg tablet TAKE 2 TABLETS BY MOUTH EVERY DAY 09/13 completed Not Available Not Available Not Available clopidogr el 75 mg tablet TAKE 1 TABLET BY MOUTH EVERY DAY 06/30 completed Not Available Not Available Not Available sildenafi l 25 mg tablet TAKE 1 TABLET BY MOUTH 1-4 hours prior TO need active Not Available Not Available No t Available amitripty line 25 mg tablet TAKE 1 TABLET BY MOUTH EVERY DAY AT BEDTIME active Not Available Not Available No t Available pantopraz ole 40 mg tablet,de layed release TAKE 1 TABLET BY MOUTH EVERY DAY 2024 active vo JR/tn Not Available Not Available Not Avai lable simvastat in 20 mg tablet TAKE 1 TABLET BY MOUTH EVERY DAY 06/30 completed Not Available Not Available Not Available lisinopri l 10 mg tablet 04/16 completed Not Available Not Available Not Available hydrochlo rothiazid e 12.5 mg capsule take 1 capsule BY MOUTH EVERY DAY 09/05 completed Not Available Not Available Not Available albuterol sulfate HFA 90 mcg/actua tion aerosol inhaler INHALE TWO PUFFS EVERY 6 HOURS NEEDED FOR asthma active Not Available Not Available No t Available doxycycli ne hyclate 100 mg tablet TAKE 1 TABLET BY MOUTH TWICE DAILY 09/13 completed Not Available Not Available Not Available naproxen 500 mg tablet take one tablet BY MOUTH TWICE DAILY NEEDED 09/13 completed Not Available Not Available Not Available amoxicill in 875 mg-potass ium clavulana te 125 mg tablet 04/16 completed Not Available Not Available Not Available olmesarta n 20 mg tablet TAKE ONE TABLET BY MOUTH DAILY 2024 active vo JR/tn Not Available Not Available Not Avai lable Asprin Ec Low Dose 81 mg tablet,de layed release Take 1 tablet every day by oral route. active Not Available Not Available No t Available hydrochlo rothiazid e daily 10/16 completed Recorded 11/30/19 22 3:08PM by Patricia Lozano MD, Office Visit; Refill Quantity : 100; Capsule; Not Available Not Available Not Available Vitals Date Recorded Body height Body mass index (BMI) Body weight Oxygen saturation Oxygen saturation in Arterial blood by Pulse oximetry Heart rate Respiratory rate Body temperature Systolic And Diastolic Provider Name and Address Organization Details Last Updated DateTime 4 181.61 cm 27.8 kg/m2 34109.7 6 g 96 % 96 % 90 /min 18 /min 98.5 [degF] 104/70 mm[Hg] [facility] 4 12:53:47 Date Recorded Body height Body mass index (BMI) Body weight Oxygen saturation Oxygen saturation in Arterial blood by Pulse oximetry Heart rate Respiratory rate Body temperature Systolic And Diastolic Provider Name and Address Organization Details Last Updated DateTime 4 181.61 cm 28.1 kg/m2 17422.9 4 g 97 % 97 % 78 /min 20 /min 98.5 [degF] 138/98 mm[Hg] Vilma Bangura [facility] 4 12:48:57 Date Recorded Body height Body mass index (BMI) Body weight Respiratory rate Heart rate Oxygen saturation Oxygen saturation in Arterial blood by Pulse oximetry Body temperature Systolic And Diastolic Provider Name and Address Organization Details Last Updated DateTime 4 181.61 cm 29 kg/m2 14842.9 9 g 18 /min 78 /min 98 % 98 % 98.6 [degF] 140/88 mm[Hg] [facility] 4 15:10:11 Date Recorded Body height Body mass index (BMI) Body weight Respiratory rate Oxygen saturation Oxygen saturation in Arterial blood by Pulse oximetry Heart rate Body temperature Systolic And Diastolic Provider Name and Address Organization Details Last Updated DateTime 5 181.61 cm 28.7 kg/m2 57257.3 1 g 16 /min 98 % 98 % 75 /min 98 [degF] 142/90 mm[Hg] MARIO DEMARCO [facility] 5 08:52:11 Date Recorded Body height Body mass index (BMI) Body weight Respiratory rate Oxygen saturation Oxygen saturation in Arterial blood by Pulse oximetry Heart rate Body temperature Systolic And Diastolic Provider Name and Address Organization Details Last Updated DateTime 4 181.61 cm 28.9 kg/m2 21709.8 g 18 /min 98 % 98 % 76 /min 98.4 [degF] 144/86 mm[Hg] TONIA HAMBY [facility] 4 10:24:46 Social History Question Answer Notes LastModified by Organizat ion Details LastModified Time Tobacco Smoking Status Former Smoker MARIO beck [facility] 08/09/2024 08:52:59 When Did You Quit Smoking? 16+yearssinc elastcigaret te [email or web address] Information not available 08/09/2024 What Was The Date Of Your Most Recent Tobacco Screening? 08/09/2024 Information not available 08/09/2024 What Is Your Relationship Status? Information not available 09/13/2022 Sex: Unknown Functional Status Question Answer Note LastModified by Organizat ion Details LastModified Time Do you or have you ever used any other forms of tobacco or nicotine? Yes Information not available 04/01/2023 Do you or have you ever used smokeless tobacco? Current snuff user Information not available 04/01/2023 Are you able to care for yourself independently? Yes Information not available 09/13/2022 Mental Status None recorded. Family History Nothing Reported. Medical History Condition Response Stroke Y Immunizations Vaccine Type Date Status Note Provider Nam e and Address Organization Details Recorded Time COVID-19, mRNA, LNP-S, PF, 100 mcg/0.5mL dose or 50 mcg/0.25mL dose 08/17/2020 owen beck [facility] 09/13/2022 16:02:57 COVID-19, mRNA, LNP-S, PF, 100 mcg/0.5mL dose or 50 mcg/0.25mL dose 09/23/2020 completed ELAINA beck, [facility] 09/13/2022 16:02:57 Tdap 09/27/2009 completed ELAINA beck [facility] 09/13/2022 16:02:57 Tdap 05/23/2019 completed Not Available [facility] 04/03/2023 15:42:59 Past Encounters Encounter ID Performer Location Encounter Start Date Encounter Closed Date Diagnosis/Indication Diagnosis SNOMED-CT Code Diagnosis ICD10 Code Diagnosis IMO Codes Diagnosis Note [id number] Patricia Lozano MD [facility] ([facility]) [address] [place] [phone] 09/13/2022 15:47:20 09/25/2022 06:35:02 Screening for malignant neoplasm of colon 809235596 Z12.11 Pt is scheduled for a colonoscop y on 10/04/22 [id number] Patricia Lozano MD [facility] ([facility]) [address] [place] [phone] 10/16/2022 09:06:45 10/16/2022 18:46:39 Tubular adenomatous polyp of colon 657964784 D12.6 [id number] Patricia Lozano MD [facility] ([facility]) [address] [place] [id number] 04/01/2023 14:41:48 04/01/2023 16:34:45 Essential hypertension 10962032 I10 Cerebrovas cular accident 133568471 I63.9 [id number] Patricia Lozano MD [facility] ([facility]) [address] [place] [phone] 04/03/2023 15:42:15 04/03/2023 17:01:10 History of cerebrovascular accident 439023146 Z86.73 Nausea 815260633 R11.0 Essential hypertension 31690405 I10 8320998 Patricia Lozano MD [facility] ([facility]) [address] [place] [address] [phone] 04/17/2023 11:45:26 04/17/2023 16:37:53 Essential hypertension [id number] I10 Cerebral infarction [id number] I63.9 [id number] Tapan Guy DO [facility] ([facility]) [address] [place] [address] [phone] 07/01/2023 12:31:22 07/01/2023 13:33:48 Malaise and fatigue [id number] R53.83 Chronic progressin g symptoms. much worse lately. I counseled on sleep hygeine, diet, exercise, supplement s as well as mental health. We will get labs today. consider further workup with either further labs, sleep study, etc pending results. Essential hypertension [id number] I10 [id number] Patricia Lozano MD [facility] ([facility]) [address] [place] [address] [phone] 07/10/2023 14:41:10 07/10/2023 18:04:14 Malaise and fatigue [id number] R53.83 Erectile dysfunction [id number] F52.21 [id number] Patricia Lozano MD [facility] ([facility]) [address] [place] [address] [phone] 09/06/2023 10:13:46 09/06/2023 11:49:39 Laboratory test result abnormal [id number] R89.9 History of cerebrovascular accident [id number] Z86.73 [id number] JENI RUTHERFORD APRN [facility] ([facility]) [address] [place] [address] [phone] 08/09/2024 08:45:56 08/09/2024 16:33:45 Pain of left hand [id number] 21083 M79.642 [id number] Health Concerns Section Related Observation LastModified by Organization Detai ls LastModified Time None Recorded Concern Status LastModified by Organization Details LastModified Time None Recorded Advance Directives Directive None Recorded Payers Insurance Date Sequence Insurance Name Policy Number Policy Gutierrez Covered Member ID Gutierrez Member ID Guarantor Name 08/09/2024 1 [place] [id number] Benedicto Brennan [id number] Benedicto Brennan Notes Date Note Type Note Provider Name and Address Organization Details Recorded Time 04/17/2023 text/html Hypertension F/UReported by PatientHPIFor associated symptoms, patient reportsmotor disturbances (balance off but improved)but reportsno dizziness,no lightheadedness,no chest pain,no shortness of breath,no palpitations,no edema,no calf pain with exertion, andno headache. For medications, patient reportstaking medications as directedandno side effects from medication(pt has not been checking his blood pressure recently).ROS as noted in the HPI He is still having quite a bit of fatigue. It is gradually improving, he is frustrated with how slow he has been progressing. Patricia Lozano MD [address] [place] [address], [phone], [facility] 04/18/2023 09:43:09 07/01/2023 text/html ROS as noted in the HPI had episode of low blood pressure on Saturday checked and was 100/70 felt weak, fatigued, and dizzyhad nausea and vomiting yesterday and continues with fatigue held bp med olmesartan yesterday and today s/p CVA several mts ago. on multiple new meds since then.seen by Neurology, Dr. Alexandre, about 3 wks ago, started on amitriptyline 25mg then to help with CHRISTIE and insomnia. sleeping much better since, but more fatigued. Tapan Guy DO [address] [place] [address], [phone], [facility] 07/14/2023 19:41:15 07/10/2023 text/html Pt was seen at Walk-in clinic about 1 week ago for having an episode of low blood pressure on previous Saturday and his reading was 100/70. He felt weak, fatigued, and dizzy andhad nausea and vomiting .Dr. Guy had pt stop his HCTZ last week. Pt stated that his blood pressure has been running 130's/80's since seen 1 week ago Patricia Lozano MD [address] [place] [address], [phone], [facility] 07/23/2023 07:20:27 08/09/2024 text/html ROS as noted in the HPI walk-in; PCP Dr. Lozano Patient states he smashed his left hand in a trailer Saturday night. He has pain mainly in the knuckles. JENI RUTHERFORD, [employer] [address] [place], [phone], [facility] Hospital[facility] Miguel 08/09/2024 09:43:44
--- NOTE | 2024-11-28 11:35 | W.ED.CHESTPA ---
HPI - Chest Pain General: Chief Complaint: ER Hold Stated Complaint: CP SOB Time Seen by Provider: 11/28/24 11:26 History of Present Illness: 59-year-old male with a history of stroke and GERD who presents emergency room with chest tightness and shortness of breath. This is exertional in nature. Has been going on for a few days. Particularly at work. No edema. No abdominal pain. No nausea or vomiting. He says that whenever he walks any distance he will get tightness chest and feels short of breath. No known cardiac history. He says he had a stroke at 1 point and received TNKase and has no further deficits and did not remain on any blood thinners or medications for that. Related Data Home Medications ?Medication ?Instructions ?Recorded ?Confirmed pantoprazole 40 mg tablet,delayed 40 mg PO QAM 08/21/20 11/28/24 release olmesartan 20 mg tablet 20 mg PO DAILY 06/04/23 11/28/24 aspirin 81 mg tablet,delayed 81 mg PO DAILY 10/14/23 11/28/24 release (Adult Aspirin Regimen) Previous Rx's ?Medication ?Instructions ?Recorded atorvastatin 40 mg tablet 40 mg PO DAILY #30 tabs 05/25/24 Allergies Allergy/AdvReac Type Severity Reaction Status Date / Time azithromycin (From Zithromax) Allergy TOROY-Swell Verified 10/18/23 07:25 Lip/Tongue/Throat Review of Systems Narrative: Constitutional symptoms: Negative except as documented in HPI. Skin symptoms: Negative except as documented in HPI. Eye symptoms: Negative except as documented in HPI. ENMT symptoms: Negative except as documented in HPI. Respiratory symptoms: Negative except as documented in HPI. Cardiovascular symptoms: Negative except as documented in HPI. Gastrointestinal symptoms: Negative except as documented in HPI. Genitourinary symptoms: Negative except as documented in HPI. Musculoskeletal symptoms: Negative except as documented in HPI. Neurologic symptoms: Negative except as documented in HPI. Psychiatric symptoms: Negative except as documented in HPI. Endocrine symptoms: Negative except as documented in HPI. PFS ED PFSH: Medical History (Updated 11/28/24 @ 14:40 by Tricia Cabrera MD) Leucocytosis Cerebrovascular accident HTN (hypertension) Nystagmus Vertigo No pertinent past medical history Social History Smoking and tobacco/nicotine status: former use of tobacco/nicotine Physical Exam Narrative: EXAM NARRATIVE: General: Alert, no acute distress. Skin: Warm, dry. Head: Normocephalic, atraumatic. Neck: Supple, trachea midline. Eye: Extraocular movements are intact. Ears, nose, mouth and throat: mucosa moist. Cardiovascular: Regular, Normal peripheral perfusion. Respiratory: Lungs are clear to auscultation, respirations are non-labored, breath sounds are equal, Symmetrical chest wall expansion. Gastrointestinal: Soft, Nontender, Non distended Musculoskeletal: Normal ROM, no deformity. Neurological: Alert and oriented, No focal neurological deficit observed. Psychiatric: Cooperative, appropriate mood & affect. Course Vital Signs: Vital signs: Vital Signs Temperature 98.5 F 11/28/24 11:25 Pulse Rate 63 11/28/24 14:30 Respiratory Rate 17 11/28/24 11:25 Blood Pressure 132/85 11/28/24 14:30 Pulse Oximetry 99 11/28/24 14:30 Oxygen Delivery Me thod Room Air 11/28/24 14:30 MDM - Chest Pain Medical Decision Making Differential diagnosis for patient with chest pain includes but is not limited to and based on the above HPI, review of systems and physical exam: Pneumonia. unstable angina. angina. Acute coronary syndrome / IA. Pulmonary embolism. Costochondritis / musculoskeletal. Pleurisy. Pericarditis. Esophageal spasm. Pancreatis. Cholecystitis. Orders placed to evaluate differential diagnosis based on the above differential, HPI and physical exam EKG: Time 1129. Rate 97. Normal sinus rhythm, nonspecific ST changes, PVC., normal [place] & QRS intervals, This was reviewed and interpreted by myself the ER physician at 1133 Chest x-ray: No acute process. No infiltrate. No pneumothorax. This was reviewed and interpreted by myself the emergency room physician. I also reviewed the radiology report. Lab Review: Laboratory results were reviewed and interpreted by myself the emergency room physician. No leukocytosis. No anemia. No renal failure. Although BUN is a little bit elevated at 23. I reviewed the patient's medical record. History of stroke. Received TNKase. Admitted to the hospital at that time. No significant other history at this time. Reexamination: Patient remained stable. No increased work of breathing. No altered mental status. No focal motor deficits. He and for comfortable with him going home at this point. They would rather have a stress test to soon as possible. Given his history of stroke and a heart score of around 5 I agree. Consultation: I spoke with Dr. Salazar who is on-call for the hospital service who agrees to admission. She request cardiology consultation so I am calling Dr. Peña Consultation: I spoke with Dr. Peña with the cardiology service. She agrees with plan to observe in probable stress test on Saturday morning. Assessment and plan: Chest pain - Discharged home - Discussed findings and plan with patient. Answered any questions. - All laboratory values were reviewed and interpreted personally by myself, the ER physician - All imaging was reviewed and interpreted personally by myself, the ER physician. - Evaluation and treatment of this problem were appropriate in the emergency setting Lab Data 11/28/24 11:30 11/28/24 11:30 Radiology Impressions Chest X-Ray 11/28/24 11:26 IMPRESSION: No acute cardiopulmonary abnormality. Laboratory Results WBC 7.69 10^3/uL (3.29-11.43) 11/28/24 11:30 RBC 5.07 10^6/uL (3.85-5.65) 11/28/24 11:30 Hgb 15.40 g/dL (11.27-16.99) 11/28/24 11:30 Hct 45.4 % (37-53) 11/28/24 11:30 MCV 89.5 fl (82-101) 11/28/24 11:30 MCH 30.4 pg (27-33) 11/28/24 11:30 MCHC 33.9 g/dL (30-55) 11/28/24 11:30 RDW 12.4 % (12.1-15.1) 11/28/24 11:30 Plt Count 267 10^3/cmm (157-399) 11/28/24 11:30 MPV 9.3 fL (7.4-10.4) 11/28/24 11:30 Neut % (Auto) 70.7 % 11/28/24 11:30 Lymph % (Auto) 19.5 % 11/28/24 11:30 [place] % (Auto) 6.6 % 11/28/24 11:30 Eos % (Auto) 2.1 % 11/28/24 11:30 Baso % (Auto) 0.8 % 11/28/24 11:30 Neut # (Auto) 5.44 10^3/uL (1.8-7.7) 11/28/24 11: Lymph # (Auto) 1.5 10^3/uL (0.8-4.8) 11/28/24 11:30 [place] # (Auto) 0.5 10^3/uL (0.2-0.9) 11/28/24 11:30 Eos # (Auto) 0.2 10^3/uL (0.0-0.8) 11/28/24 11:30 Baso # (Auto) 0.1 10^3/uL (0.0-0.1) 11/28/24 11: Nucleated RBC % (auto) 0 % 11/28/24 11: Nucleated RBCs # 0.0 /100WBC 11/28/24 11:30 D-Dimer <= 0.27 ug/mLFEU (0-0.59) 11/28/24 11:30 Sodium 138 mmol/L (136-145) 11/28/24 11:30 Potassium 4.3 mmol/L (3.5-5.1) 11/28/24 11:30 Chloride 103 mmol/L (98-107) 11/28/24 11:30 Carbon Dioxide 23 mmol/L (22-29) 11/28/24 11:30 Anion Gap 16.3 (5-19) 11/28/24 11:30 BUN 23 mg/dL (6-20) H 11/28/24 11:30 Creatinine 0.9 mg/dL (0.7-1.2) 11/28/24 11:30 GFR Calculation 86.7 mL/min (90-130) L 11/28/24 11:30 Glucose 127 mg/dL (65-115) H 11/28/24 11:30 Calculated Osmolality 291 mOsm/kg (285-295) 11/28/24 11:30 Calcium 9.2 mg/dL (8.5-10.5) 11/28/24 11:30 Total Bilirubin 0.6 mg/dL (0.15-1.2) 11/28/24 11:30 AST 31 U/L (0-40) 11/28/24 11:30 ALT 55 U/L (0-41) H 11/28/24 11:30 Alkaline Phosphatase 66 U/L (40-130) 11/28/24 11:30 Troponin T Baseline 12 ng/L (0-15) 11/28/24 11:30 Troponin T 120 Minute 8.53 ng/L (0-15) 11/28/24 13:01 Delta Troponin T -3.47 ABS# (0-10) L 11/28/24 13:01 NT-Pro-B Natriuret Pep 37 pg/mL (0-125) 11/28/24 11:30 Total Protein 6.4 g/dL (6.6-8.7) L 11/28/24 11:30 Albumin 4.4 g/dL (3.5-5.2) 11/28/24 11:30 Globulin 2.0 g/dL (1.3-4.6) 11/28/24 11:30 All radiology interpretation(s) finalized by discharge Clincial Decision Support The following clinical decision support tools were used to aid in care of the patient HEART Score -> History: Highly Suspicious, EKG: Non-specific Changes, Age: 45-64 yrs, Risk Factors: 1 or 2 Risk Factors, Troponin: Baseline Trop <16 ng/L. Resulting HEART Score: 5. Discharge Plan Discharge Patient Disposition: Placed in Observation Clinical Impression: Chest pain Coding Level of Care Code ED Supervisor [place] [facility] HEART Score Components History: Highly Suspicious EKG: Non-specific Changes Age: 45-64 yrs Risk Factors: 1 or 2 Risk Factors Troponin: Baseline Trop <16 ng/L HEART Score RESULT HEART Score: 5
[2024-11-28 11:40] LABS: Hematocrit 45.4 % (37-53); Hemoglobin 15.40 g/dL (11.27-16.99); Mean Corpuscular HGB Conc 33.9 g/dL (30-55); Mean Corpuscular Hemoglobin 30.4 pg (27-33); Mean Corpuscular Volume 89.5 fl (82-101); Nucleated Red Blood Cells % 0 %; Platelet Count 267 10^3/cmm (157-399); Red Blood Count 5.07 10^6/uL (3.85-5.65); White Blood Count 7.69 10^3/uL (3.29-11.43)
[2024-11-28 12:00] LABS: Troponin(5th) Baseline 12 ng/L (0-15)
[2024-11-28 12:12] LABS: Alanine Aminotransferase 55 U/L (0-41); Albumin Level 4.4 g/dL (3.5-5.2); Alkaline Phosphatase 66 U/L (40-130); Aspartate Amino Transferase 31 U/L (0-40); Blood Urea Nitrogen 23 mg/dL (6-20); Calcium 9.2 mg/dL (8.5-10.5); Carbon Dioxide 23 mmol/L (22-29); Chloride 103 mmol/L (98-107); Creatinine Clr Calc Pharmacy 105.3872; Globulin 2.0 g/dL (1.3-4.6); Glucose 127 mg/dL (65-115); NT Pro B Type Natriuretic Pept 37 pg/mL (0-125); Osmolality Calculated 291 mOsm/kg (285-295); Sodium 138 mmol/L (136-145); Total Protein 6.4 g/dL (6.6-8.7)
[2024-11-28 12:13] LABS: Anion Gap 16.3 (5-19); Potassium 4.3 mmol/L (3.5-5.1)
--- NOTE | 2024-11-28 13:26 | ECG_ITS ---
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 Measurements Intervals [place] Rate: 62 P: 18 IN: 189 QRS: -11 QRSD: 95 T: 32 QT: 382 QTc: 389 Interpretive Statements SINUS RHYTHM INFERIOR MYOCARDIAL INFARCTION , OF INDETERMINATE AGE [40+ ms Q WAVE AND/OR ST/T ABNORMALITY IN II/aVF] Compared to ECG 11/28/2024 11:29:20 Ventricular premature complex(es) no longer present Indeterminate axis no longer present Myocardial infarct finding still present Electronically Signed On 12-01-2024 19:50:10 CDT by Henrique Ny M.D. [email or web address]
[2024-11-28 13:36] LABS: Troponin 5 2HR 8.53 ng/L (0-15); Troponin 5 2HR Delta -3.47 ABS# (0-10)
--- NOTE | 2024-11-28 17:11 | ECG_ITS ---
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 Measurements Intervals [place] Rate: 54 P: 10 [place]: 197 QRS: 0 QRSD: 105 T: 30 QT: 403 QTc: 385 Interpretive Statements SINUS BRADYCARDIA INFERIOR MYOCARDIAL INFARCTION , OF INDETERMINATE AGE [40+ ms Q WAVE AND/OR ST/T ABNORMALITY IN II/aVF] Compared to ECG 11/28/2024 13:25:15 Sinus rhythm no longer present Myocardial infarct finding still present Electronically Signed On 12-01-2024 19:48:49 CDT by Henrique Ny M.D. [email or web address]
--- NOTE | 2024-11-28 18:00 | PM.HP ---
Providers/Chief Complaint Admitting Physician: Suzy Salazar MD patient admitted as stepdown overflow observation Primary Care Provider: Lambert Serrano MD Chief Complaint: CP SOB History of Present Illness Benedicto Brennan is a 59 year old male who presented with CHADS2 score #5 complaining with exertional chest pain upon moving around last year patient had a stroke and at that time stress test was negative according to the family and the patient cardiology had discussed this case with the emergency room upon my suggestion and wanted patient be admitted to at least have a stress test done. Patient troponin had been negative x 2. Patient will get the chest pain upon moving around. Patient to be n.p.o. after midnight on Saturday for stress test on Saturday being 12/08/2024. The patient had been given aspirin and Nitropaste per order. Patient denies any chest pain at the time of my evaluation of the patient in the ICU. Patient is a stepdown unit, stepdown overflow in ICU because of lack of bed Review of Systems Narrative: System review upon 10 organ review where unremarkable except for cardiovascular reference chest pain. Medications/Allergies Home Medications ?Medication ?Instructions ?Recorded ?Confirmed ?Last Taken ?Type pantoprazole 40 mg tablet,delayed 40 mg PO QAM 08/21/20 11/28/24 11/28/24 History release olmesartan 20 mg tablet 20 mg PO DAILY 06/04/23 11/28/24 11/28/24 History aspirin 81 mg tablet,delayed 81 mg PO DAILY 10/14/23 11/28/24 11/28/24 History release (Adult Aspirin Regimen) atorvastatin 40 mg tablet 40 mg PO DAILY #30 tabs 05/25/24 11/28/24 11/28/24 Rx Allergies Allergy/AdvReac Type Severity Reaction Status Date / Time azithromycin (From Zithromax) Allergy ALGY-Swell Verified 10/18/23 07:25 Lip/Tongue/Throat PFSH Acute PFSH: Medical History Leucocytosis Cerebrovascular accident HTN (hypertension) Nystagmus Vertigo No pertinent past medical history Social History Smoking and tobacco/nicotine status: former use of tobacco/nicotine Vitals/I&O/Wt Last Vital Signs Temp 98.5 F 11/28/24 11:25 Pulse 65 11/28/24 17:22 Resp 17 11/28/24 11:25 BP 135/77 11/28/24 16:38 Pulse Ox 97 11/28/24 17:22 O2 Del Method Room Air 11/28/24 17:22 Weight last 48 hrs Weight 93 kg Weight 95.254 kg Physical Exam Narrative: Patient is relaxed in bed supine with no chest pain family member by the bedside HEENT normocephalic atraumatic neck neck is supple cardiovascular heart rate is regular lungs are pretty much clear abdomen soft nontender nondistended unremarkable EXTR extremities are intact no edema has good pulses neurology he has no focal focality lab studies lab studies reviewed and noted. Data 11/28/24 11:30 11/28/24 11:30 A&P Assessment and plan 1. Chest pain: 2. History of CVA (cerebrovascular accident): Plan: Chest pain like into unstable angina - Admit to stepdown unit as an overflow to ICU - Place under observation - Follow through with stress test on 11/30/2024 - Place patient on antiplatelets and nitrates - Plan for stress test PDMP PDMP Reviewed: Not Reviewed Attestations Medical Necessity Statement*: Patient with chest pain likened to unstable angina would need at least 1 midnights for further evaluation for care. Coding Level of Care Code 05054 Diagnoses Chest pain R07.9 History of CVA (cerebrovascular accident) Z86.73 Time Spent (min) 60
[2024-11-28 18:21] LABS: Troponin 5 6HR 12.30 ng/L (0-15); Troponin 5 6HR Delta 0.30 ng/L (0-12)
[2024-11-28] MEDS: heparin 5,000 unit/mL INJ 1 mL 5000 UNIT SUBCUT (18:23)
[2024-11-29] VITALS (35 sets, daily range): BP systolic 101–129; BP diastolic 60–92; PULSE 57–98; RESP 11–21; TEMP 36.3–36.6; O2SAT 94–98
[2024-11-29 03:44] LABS: Hematocrit 42.4 % (37-53); Hemoglobin 14.20 g/dL (11.27-16.99); Mean Corpuscular HGB Conc 33.5 g/dL (30-55); Mean Corpuscular Hemoglobin 30.3 pg (27-33); Mean Corpuscular Volume 90.4 fl (82-101); Nucleated Red Blood Cells % 0 %; Platelet Count 204 10^3/cmm (157-399); Red Blood Count 4.69 10^6/uL (3.85-5.65); White Blood Count 6.92 10^3/uL (3.29-11.43)
[2024-11-29 04:09] LABS: Alanine Aminotransferase 51 U/L (0-41); Albumin Level 3.9 g/dL (3.5-5.2); Alkaline Phosphatase 56 U/L (40-130); Anion Gap 13.9 (5-19); Aspartate Amino Transferase 28 U/L (0-40); Blood Urea Nitrogen 20 mg/dL (6-20); Calcium 8.5 mg/dL (8.5-10.5); Carbon Dioxide 23 mmol/L (22-29); Chloride 108 mmol/L (98-107); Creatinine Clr Calc Pharmacy 93.6089; Globulin 2.2 g/dL (1.3-4.6); Glucose 107 mg/dL (65-115); Magnesium 2.1 mg/dL (1.7-2.3); Osmolality Calculated 295 mOsm/kg (285-295); Potassium 3.9 mmol/L (3.5-5.1); Sodium 141 mmol/L (136-145); Total Protein 6.1 g/dL (6.6-8.7)
[2024-11-29] MEDS: heparin 5,000 unit/mL INJ 1 mL 5000 UNIT SUBCUT (05:03)
[2024-11-29] MEDS: nitroglycerin 1 gm/inch oint Pkt 1 INCH TOPICAL (08:56)
--- NOTE | 2024-11-29 09:57 | PM.CONSULT ---
Providers/Reason For Consult Consulting Physician/Specialty*: Phong Peña MD Reason for Consult*: Chest pain Requesting Physician: Suzy Salazar MD Attending Physician: Suzy Salazar MD Primary Care Provider: Lambert Serrano MD History of Present Illness History of Present Illness Benedicto Brennan is a 59 year old male with a history of HTN, GERD and neurologic event in 03/2019 that the neurologist called a posterior circulation stroke though there was no evidence of stroke on the MRI. The patient had a stress test in 07/2023 that was negative for ischemia. The patient now presents with a few days of exertional chest pain and shortness of breath. This is brought on by walking only 10 feet. Medications/Allergies Home Medications ?Medication ?Instructions ?Recorded ?Confirmed ?Last Taken ?Type pantoprazole 40 mg tablet,delayed 40 mg PO QAM 08/21/20 11/28/24 11/28/24 History release olmesartan 20 mg tablet 20 mg PO DAILY 06/04/23 11/28/24 11/28/24 History aspirin 81 mg tablet,delayed 81 mg PO DAILY 10/14/23 11/28/24 11/28/24 History release (Adult Aspirin Regimen) atorvastatin 40 mg tablet 40 mg PO DAILY #30 tabs 05/25/24 11/28/24 11/28/24 Rx Allergies Allergy/AdvReac Type Severity Reaction Status Date / Time azithromycin (From Zithromax) Allergy ALGY-Swell Verified 10/18/23 07:25 Lip/Tongue/Throat Current Medications Generic Name Dose Route Start Last Admin Trade Name Freq PRN Reason Stop Dose Admin Aspirin 325 mg 11/29/24 05:00 11/29/24 05:03 Aspirin 325 Mg Tablet PO 325 mg DAILY K[place]ON Administration Sodium Chloride 1,000 mls @ 75 mls/hr 11/28/24 18:00 11/29/24 05:19 Sodium Chloride 0.9% IV 75 mls/hr .[id number] [place] Administration Nitroglycerin 1 inch 11/28/24 19:15 11/29/24 08:56 Nitroglycerin 1 Gm/Inch Oint Pkt TOPICAL 1 inch Q6H [place] Administration Pantoprazole Sodium 40 mg 11/29/24 05:00 11/29/24 05:[address] 40 Mg Tablet PO 40 mg DAILY [place] Administration PFSH Acute PFSH: Medical History (Updated 11/29/24 @ 10:36 by Phong Peña MD) Leucocytosis Cerebrovascular accident HTN (hypertension) Nystagmus Vertigo No pertinent past medical history Social History Smoking and tobacco/nicotine status: former use of tobacco/nicotine Vitals/I&O/Wt Last Vital Signs Temp 97.4 F L 11/29/24 07:19 Pulse 64 11/29/24 07:19 Resp 14 11/29/24 07:19 BP 119/76 11/29/24 07:19 Pulse Ox 96 11/29/24 07:19 O2 Del Method Room Air 11/29/24 07:19 11/28/24 11/29/24 11/29/24 22:59 06:59 14:59 Intake Total 940 / 940 240 / 240 Output Total 0 / 0 Balance 940 / 940 240 / 240 Weight last 48 hrs Weight 204 lb Weight 205 lb 0.478 oz Weight 210 lb Physical Exam Narrative: General: In no acute distress Neck: No jugular venous distention or carotid bruits Heart: Normal S1 and S2 with a regular rate and rhythm, no cardiac murmurs Lungs: Normal respiratory effort with no use of intercostal muscles, clear lungs sounds to auscultation Extremities: No lower extremity edema Neuro: Alert and oriented x 3 Data 11/29/24 02:50 11/29/24 02:50 A&P Assessment and plan 1. History of CVA (cerebrovascular accident): 2. Chest pain: 3. Unstable angina: 4. Hypertension: Plan: Symptoms consistent with unstable angina of a significant degree Trops negative x [address]-T changes for ischemia but findings of nonacute inferior infarction (q waves inferior leads) Echo ASA 81mg daily Atorvastatin 40mg qhs Hold home Olmesartan since BP normal (SBP 119) on nitropaste Left heart catheterization today NPO since 8:30 am today PDMP PDMP Reviewed: Not Reviewed Coding Level of Care Code 39956 Diagnoses History of CVA (cerebrovascular accident) Z86.73 Chest pain R07.9 Unstable angina I20.0 Hypertension I10
--- NOTE | 2024-11-29 13:04 | XACV_ITS ---
Exam Room: [facility] Ht: 180 cm Wt: 93 kg BSA: 2.17 m2 Gender: Male : 1965 Any Known Allergies: Other Exam Priority: Routine Procedure(s): Procedure Description: Diagnostic procedure Procedure Description: Left Heart Catheterization Procedure Description: Left ventriculography Procedure Description: Coronary Angiography Procedure Description: Pressure Wire Diagnostic Cath Status: Elective Diagnostic Findings * INDICATION: Unstable angina. * Left Main has no significant disease. * Circumflex has no significant disease. * Right Coronary Artery has mild luminal irregularities. * Mid Left Anterior Descending to Distal Left Anterior Descending: moderate 40-50% stenosis, MALENA: 3 flow. * Coronary angiography shows right dominance. Interventional Findings * Procedure detail: Left main artery was engaged with XB 3.5 guide catheter. We performed IFR and got a value of 0.93 which was nonischemic. Medical therapy was decided. Patient left the Thermal Cutter Hand in a stable condition. Conclusions 1. Moderate mid to distal LAD stenosis s/p iFR that is non-ischemic with a value of 0.93. 2. Normal left ventricular systolic function. Ejection fraction of 60%. Recommendations * Likely microvascular dysfunction. Can add long-acting nitrates. * Aggressive risk factor modification. Interventional RX Recommendation: medical therapy and/or counseling Anticoagulation: Heparin Ventriculography Ejection Fraction: 60.0 % Pressures Phase:Rest AO : 110 / 63 ( 79 ) @ 3:23:00 PM 88 / 69 ( 80 ) @ 3:27:00 PM 80 / 64 ( 72 ) @ 3:29:00 PM 121 / 69 ( 87 ) @ 3:35:00 PM 120 / 68 ( 86 ) @ 3:35:00 PM LV : 114 / -11 / 10 @ 3:34:00 PM 120 / -6 / 16 @ 3:35:00 PM 120 / -5 / 18 @ 3:35:00 PM Valves Phase:DefaultPhase AV : 0.0 @ 2:56:09 PM AV Mean Gradient: 0.0 @ 2:56:09 PM Clinical Evaluation EBL: 5mL-10mL Procedural Details Current Diagnosis : Chest Pain. Pre-Procedure Time Out. Identified patient by full name and date of as verbalized by the patient/guarantor. Does the consent match the physician's order: Yes. Accurate & Complete Informed Consent: Yes. Inpatient/Outpatient History & Physical on Chart: Yes. If H&P is completed, is and addenduem needed: No; If yes, is the addendum complete: N/A. Visualize and Verify Site with Patient/Guarantor: N/A. Relevant Radiology Images available: Yes. Pre-op teaching completed and patient verbalized understanding. The risks, benefits, and alternatives of sedation and/or procedure were discussed by physician. The patient agrees to continue. Procedure started. [facility] Clinical Fraility Score: 3: Managing Well. Thermal Cutter Hand Indications: Suspected CAD. Chest Pain Symptom Assessment: Typical Angina Symptoms. Current diagnosis: Chest Pain. PERRLA. Strong, equal hand senior report developer bilaterally. Lungs clear x 5 lobes. IV Site on Arrival: 20 gauge in the left anticubital. Pre Procedural Pulses: right radial was 3+. Oxygen started at 2liters/min via nasal canula. right groin was prepped with chloroprep then draped in the usual sterile fashion. right radial was prepped with chloroprep then draped in the usual sterile fashion. Baseline sample Acquired. HR: 54 BPM. Physician arrived. Physician scrubbed in. Immediate Pre-Procedure Time Out. Correct Patient: Yes; Correct Procedure: Yes; Correct Site: Yes; Correct Patient Position: Yes; Correct Supplies: Yes; Dried Flammable Prep: Yes; Blood Products Available: N/A;. Lidocaine 1% infiltrated to the right radial. Arterial access obtained. A 5 irish TIG catheter in over wire. Multiple views taken of right coronary artery. Catheter removed over the exchange wire. A 5 irish JL4 catheter in over wire. Multiple views taken of left coronary artery. Catheter removed over the exchange wire. EDP Sample taken: LV 114/-12,10; HR: 73 BPM; SpO2: 99%. LV gram performed in LEDEZMA @ 10 mL/second for a total of 30 mL. EDP Sample taken: LV 120/-7,16; HR: 77 BPM; SpO2: 99%. Pullback taken: LV 120/-6,18; AO 121/69(87); Mean: 0mmHg, Peak to Peak: 0mmHg, SEP: 6sec/min; HR: 80 BPM; SpO2: 99%. Catheter removed over the exchange wire. 6 irish XB 3.5 guide catheter was inserted over the wire. IFR guidewire was advanced through the guide catheter to lesion in the mid LAD. Wire out. IFR guidewire was advanced through the guide catheter to lesion in the mid LAD. IFR Result: 0.93. Results checked. Wire out. Guide catheter out. Vital chart was stopped. A TR Band was successful obtaining hemostatsis at the Right Radial artery insertion site. Post Procedure: Pulses reassessed and unchanged. PERRLA. Strong, equal hand senior report developer bilaterally. No VTE prophylaxis required. Medication's Wasted: Lidocaine 1% = 18 mL. Medication's Wasted: Nitro = 49.6 mcg. Medication's Wasted: Heparin = 3000 units. Medication's Wasted: Other = Fentanyl 50 mcg. Total IV fluids: 235 mL. Post-op diagnosis: Non-obstructive CAD. Complications: None. Estimated blood loss: 5mL-10mL. Responsiveness - Normal response to verbal stimuli; alert and oriented, PERRLA. Airway - Unaffected, no intervention required; spontaneous ventilation. Circulation: W/N/L, pulses unchanged. Nausea/Vomiting: No. Procedure completed. Patient transferred by bed to 1st floor. Access Site Site: Right Radial artery Sheath Size: 6 Fr Hemostasis Method: TR Band Hemostasis Success: Successful Procedure Medications Start: 2:10 PM Stop: 2:10 PM Medication: Fentanyl Amount: 50 mcg Route: I.V. Start: 2:11 PM Stop: 2:11 PM Medication: Benadryl Amount: 25 mg Route: I.V. Start: 2:18 PM Stop: 2:18 PM Medication: Versed Amount: 1 mg Route: I.V. Start: 2:21 PM Stop: 2:21 PM Medication: Nitrogylcerin Amount: 200 mcg Route: I.A. Start: 2:23 PM Stop: 2:23 PM Medication: Heparin Amount: 5000 units Route: I.V. Start: 2:36 PM Stop: 2:36 PM Medication: Heparin Amount: 3000 units Route: I.V. Start: 2:35 PM Stop: 2:35 PM Medication: Nitrogylcerin Amount: 200 mcg Route: I.A. Start: 2:37 PM Stop: 2:37 PM Medication: 0.9% Saline Amount: 250 ml Route: I.V. bolus Start: 2:45 PM Stop: 2:45 PM Medication: Versed Amount: 1 mg Route: I.V. I, the attending physician, have reviewed and verified all procedure medications. Yes, all medications given per verbal order History/Risk Factors Hypertension: Yes Dyslipidemia: No Peripheral Arterial Disease (PAD): No Myocardial Infarction (MO): No Obesity: No Renal Disease: No Tobacco Use: Former Prior Interventions PCI: No CABG: No Valve Surgery: No Report Signatures Finalized by Dajuan Perrin MD on 11/29/2024 03:09 PM
--- NOTE | 2024-11-29 14:02 | PC.NURSE ---
to cardiac laboratory sampler via bed at this time
--- NOTE | 2024-11-29 14:16 | W.PM.OPSUD ---
Surgery/Procedure H&P Update DATE OF PROCEDURE: November 29, 2024 DATE H&P PERFORMED: 11/29/24 H&P UPDATE INFORMATION: I have reviewed H&P completed within last 30 days, I have examined patient prior to procedure and No changes to prior documentation PREOP DIAGNOSIS: Unstable angina PRIMARY INDICATION FOR PROCEDURE: Unstable angina PLANNED PROCEDURE: Operation Date: 11/29/24 13:30 Proposed Procedures p Cardiac Catheterization(Not Applicable) - Dajuan Perrin M.D Possible percuteneous coronary intervention PATIENT REASSESSED PRIOR TO SEDATION, WITH NO CHANGE NOTED: Yes PHYSICAL EXAM: alert, oriented x 3, clear to auscultation bilaterally and regular rate & rhythm AIRWAY EVAL/ANESTHESIA PLAN: normal airway, ASA III, Local Anesthesia, Risks, benefits & alternatives of sedation and/or procedure discussed and Patient agrees to continue as planned ADDITIONAL INFORMATION: Moderate sedation
--- NOTE | 2024-11-29 15:22 | PC.NURSE ---
received from cardiac catheterization laboratory technician via bed at 1505.report received.pt is drowsy but easily awakened.alert and oriented x 3.denies pain at present.sr w/occas pvc's on monitor.right wrist with tr band on and inflated.right hand is warm to touch and with brisk capillary refill.palpable radial pulse noted distal to tr band.no hematoma noted.pt and family instructed in activity restrictions s/p radial artery procedure...and instructed to notify staff for any bleeding,pin,sob,dizziness,numbness,or for any concerns at all.they verb understanding of instructions
--- NOTE | 2024-11-29 15:49 | P.PN_ITS ---
Subjective 2 Subjective: LHC with mod LAD stenosis with nonhemodynamically significant iFr Slow blood flow noted in vessels as well consistent with small vessel disease Vitals/I&O/Wt Last Vital Signs Temp 97.8 F 11/29/24 15:12 Pulse 62 11/29/24 15:12 Resp 17 11/29/24 15:12 BP 116/70 11/29/24 15:12 Pulse Ox 97 11/29/24 15:12 O2 Del Method Room Air 11/29/24 15:12 11/29/24 11/29/24 11/29/24 06:59 14:59 22:59 Intake Total 940 / 940 240 / 240 Output Total 0 / 0 Balance 940 / 940 240 / 240 Weight last 48 hrs Weight 204 lb Weight 205 lb 0.478 oz Weight 210 lb Data 11/29/24 02:50 11/29/24 02:50 A&P Assessment and plan 1. History of CVA (cerebrovascular accident): 2. Chest pain: 3. Unstable angina: 4. Hypertension: Plan: Echo 11/29/24: Normal left ventricular size, systolic function and wall thickness with ejection fraction of 60%. Normal left ventricular diastolic function. Normal right ventricular size and systolic function. No significant valvular abnormalities. LHC with mod LAD stenosis and slow flow in vessels c/w small vessel disease Once post cath bedrest completed and can walk in room with no significant symptoms can be discharged on: ASA 81mg daily Atorvastatin 40mg qhs Imdur 30mg daily Nitro SL prn Hold home Olmesartan Home BP monitoring FU in our office in 2 weeks PDMP PDMP Reviewed: Not Reviewed Attestations 2 Medical Necessity Statement*: discharging Coding Level of Care Code Acute Code for Chg Fwd Diagnoses History of CVA (cerebrovascular accident) Z86.73 Chest pain R07.9 Unstable angina I20.0 Hypertension I10
--- NOTE | 2024-11-29 17:10 | PM.DCS ---
Discharge Providers Date of Admission: 11/28/24 14:27 Date of Discharge: November 29, 2024 Attending Provider at Admission: Suzy Salazar MD Attending Provider at Discharge: Suzy Salazar MD Consults: Cardiology with Dr. Rodriguez Primary Care Provider: Lambert Serrano MD Diagnoses at Discharge Discharge Diagnosis 1. History of CVA (cerebrovascular accident): 2. Chest pain: 3. Unstable angina: 4. Hypertension: Reason for Visit Reason for Visit: CP SOB Hospital Course Hospital Course Patient presented yesterday with angina that is exertional whenever he moves around or walks he is felt chest pressure. Patient has risk factors he is a middle-age, a male, history of hyperlipidemia, history of hypertension, chart score is greater than 2 case discussed with cardiology who said patient be admitted and evaluate for stress test or any other. Upon cardiology evaluating the patient they decided to take him to Office Assistance. Patient underwent cardiac catheterization and was clear coronary there are no blockages no ischemia. Patient now is advised to continue with the following medications at home reference cardiac medication ASA 81mg daily Atorvastatin 40mg qhs Hold home Olmesartan since BP normal (SBP 119) Left heart catheterization today NPO since 8:30 am today for the cardiac cath Instruction is to discharge patient after 2 hours of bedrest today and patient to follow-up in [address] 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 HEENT normocephalic/atraumatic neck neck is supple cardiovascular heart rate is regular lungs are pretty much clear abdomen soft nontender nondistended unremarkable extremities are intact no edema has good pulses neurology has no focality lab studies lab studies reviewed and noted. 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 echo complete* [id number] Routine Ultrasound 11/29/24 19:03 Completed Radiology Impressions Chest X-Ray 11/28/24 11:26 IMPRESSION: No acute cardiopulmonary abnormality. Laboratory Results WBC 6.92 10^3/uL (3.29-11.43) 11/29/24 02:50 RBC 4.69 10^6/uL (3.85-5.65) 11/29/24 02:50 Hgb 14.20 g/dL (11.27-16.99) 11/29/24 02:50 Hct 42.4 % (37-53) 11/29/24 02:50 MCV 90.4 fl (82-101) 11/29/24 02:50 MCH 30.3 pg (27-33) 11/29/24 02:50 MCHC 33.5 g/dL (30-55) 11/29/24 02:50 RDW 12.6 % (12.1-15.1) 11/29/24 02:50 Plt Count 204 10^3/cmm (157-399) 11/29/24 02:50 MPV 9.9 fL (7.4-10.4) 11/29/24 02:50 Neut % (Auto) 61.8 % 11/29/24 02:50 Lymph % (Auto) 26.2 % 11/29/24 02:50 [place] % (Auto) 6.9 % 11/29/24 02:50 Eos % (Auto) 3.8 % 11/29/24 02:50 Baso % (Auto) 1.0 % 11/29/24 02:50 Neut # (Auto) 4.28 10^3/uL (1.8-7.7) 11/29/24 02:50 Lymph # (Auto) 1.8 10^3/uL (0.8-4.8) 11/29/24 02:50 [place] # (Auto) 0.5 10^3/uL (0.2-0.9) 11/29/24 02:50 Eos # (Auto) 0.3 10^3/uL (0.0-0.8) 11/29/24 02:50 Baso # (Auto) 0.1 10^3/uL (0.0-0.1) 11/29/24 02:50 Nucleated RBC % (auto) 0 % 11/29/24 02:50 Nucleated RBCs # 0.0 /100WBC 11/29/24 02:50 D-Dimer <= 0.27 ug/mLFEU (0-0.59) 11/28/24 11:30 Sodium 141 mmol/L (136-145) 11/29/24 02:50 Potassium 3.9 mmol/L (3.5-5.1) 11/29/24 02:50 Chloride 108 mmol/L (98-107) H 11/29/24 02:50 Carbon Dioxide 23 mmol/L (22-29) 11/29/24 02:50 Anion Gap 13.9 (5-19) 11/29/24 02:50 BUN 20 mg/dL (6-20) 11/29/24 02:50 Creatinine 1.0 mg/dL (0.7-1.2) 11/29/24 02:50 GFR Calculation 76.7 mL/min (90-130) L 11/29/24 02:50 Glucose 107 mg/dL (65-115) 11/29/24 02:50 Calculated Osmolality 295 mOsm/kg (285-295) 11/29/24 02:50 Calcium 8.5 mg/dL (8.5-10.5) 11/29/24 02:50 Phosphorus 3.3 mg/dL (2.5-4.5) 11/29/24 02:50 Magnesium 2.1 mg/dL (1.7-2.3) 11/29/24 02:50 Total Bilirubin 0.5 mg/dL (0.15-1.2) 11/29/24 02:50 AST 28 U/L (0-40) 11/29/24 02:50 ALT 51 U/L (0-41) H 11/29/24 02:50 Alkaline Phosphatase 56 U/L (40-130) 11/29/24 02:50 Troponin T Baseline 12 ng/L (0-15) 11/28/24 11:30 Troponin T 120 Minute 8.53 ng/L (0-15) 11/28/24 13:01 Delta Troponin T -3.47 ABS# (0-10) L 11/28/24 13:01 Troponin T Hi Sens 6Hr 12.30 ng/L (0-15) 11/28/24 17:24 Troponin T Hi Sens 6Hr Delta 0.30 ng/L (0-12) 11/28/24 17:24 NT-Pro-B Natriuret Pep 37 pg/mL (0-125) 11/28/24 11:30 Total Protein 6.1 g/dL (6.6-8.7) L 11/29/24 02:50 Albumin 3.9 g/dL (3.5-5.2) 11/29/24 02:50 Globulin 2.2 g/dL (1.3-4.6) 11/29/24 02:50 Vitals Last Vital Signs Temp 97.6 F 11/29/24 16:00 Pulse 62 11/29/24 16:00 Resp 12 11/29/24 16:00 BP 124/60 11/29/24 16:00 Pulse Ox 96 11/29/24 16:00 O2 Del Method Room Air 11/29/24 15:12 Discharge Plan Discharge Patient Disposition: Home Condition: Stable Prescriptions: Continued atorvastatin 40 mg tablet 40 mg PO DAILY Qty: 30 0RF aspirin [Adult Aspirin Regimen] 81 mg tablet,delayed release (DR/EC) 81 mg PO DAILY Qty: 30 0RF pantoprazole 40 mg tablet,delayed release (DR/EC) 40 mg PO QAM Qty: 30 0RF Held olmesartan 20 mg tablet 20 mg PO DAILY Hold Instructions: Per cardiology advice [facility] [place] for DC: Cardiology and Hospitalist Discharge Order = DC NOW: Discharge Order (Routine); Ordered 11/29/24 Ordered By: Suzy Salazar Referrals: Lambert Serrano MD [Primary Care Provider, Family Practice] Discharge Diet: Advance as tolerated and Cardiac Discharge Activity: Resume usual activity and Increase activity as tolerated Patient Instructions: Opioid Safety, Patient Portal & [place] Instructions Discharge Attestations Time Spent in Discharge Care*: less than 30 min Quality Metrics Clinical Quality Measures [ No reported AMI, CVA or VTE this stay] Coding Level of Care Code Acute Code for Chg Fwd Diagnoses History of CVA (cerebrovascular accident) Z86.73 Chest pain R07.9 Unstable angina I20.0 Hypertension I10 Time Spent (min) 30
--- NOTE | 2024-11-29 19:03 | USCV_ITS ---
Benedicto Brennan Age: 59 Gender: M : 1965 Exam Date: 11/29/2024 08:20 Ordering Phys: Suzy Salazar MD Technologist: Randall Morales [place] [facility] [place]: chest pain BP: 119 / 76 HR: 69 Rhythm: Other Technical Quality: Adequate MEASUREMENTS (Male / Female) Normal Values 2D ECHO LV Diastolic Diameter PLAX 4.6 cm 4.2 - 5.9 / 3.9 - 5.3 cm IVS Diastolic Thickness 1.1 cm 0.6 - 1.0 / 0.6 - 0.9 cm IVS Systolic Thickness 1.8 cm LVPW Diastolic Thickness 0.7 cm 0.6 - 1.0 / 0.6 - 0.9 cm LVPW Systolic Thickness 1.4 cm LVOT Diameter 2.0 cm LV Ejection Fraction 2D Teich 76.1 % LV Ejection Fraction MOD 4C 75.1 % LV Ejection Fraction MOD 2C 58.3 % LV Ejection Fraction 2C AL 59.6 % LA Diameter 3.5 cm RA Systolic Volume 4C AL 38.4 ml RA Systolic Volume 4C MOD 37.8 ml LA Sys Volume AL 57.5 cm cubed LA Sys Volume Index AL 26.5 cm cubed/m squared Aorta at Sinotubular Diameter 2.5 cm IVC Diameter 1.7 cm M-MODE LA Ao Ratio MM 1.3 AV Cusp Separation MM 2.0 cm DOPPLER AV Peak Velocity 133.0 cm/s LVOT Peak Velocity 110.0 cm/s AV Area Cont Eq vti 2.9 cm squared AV Area Cont Eq pk 2.7 cm squared MV Peak Velocity 93.0 cm/s MV Area PHT 4.5 cm squared Mitral E to A Ratio 1.1 PV Peak Velocity 115.0 cm/s RV Ejection Time 0.3 s FINDINGS Left Ventricle Normal left ventricular size, systolic function and wall thickness with no regional wall motion abnormality. Left ventricular ejection fraction is 60%. Normal left ventricular diastolic function. Right Ventricle Normal right ventricular size and systolic function. RVSP could not be calculated due to incomplete tricuspid regurgitation velocity profile. Right Atrium Normal right atrial size. Left Atrium Normal left atrial size. IA Septum Normal appearance of the interatrial septum. Mitral Valve Normal mitral valve structure. No mitral valve stenosis. Trace mitral valve regurgitation. Aortic Valve Normal aortic valve structure. No aortic valve stenosis or regurgitation. Tricuspid Valve Normal tricuspid valve structure. No tricuspid valve stenosis or regurgitation. Pulmonic Valve Normal pulmonic valve structure. No pulmonic valve stenosis or regurgitation. Pericardium No pericardial effusion. Aorta Normal diameter of the aortic root and ascending thoracic aorta. IVC Normal IVC diameter. CONCLUSIONS Normal left ventricular size, systolic function and wall thickness with ejection fraction of 60%. Normal left ventricular diastolic function. Normal right ventricular size and systolic function. No significant valvular abnormalities. Phong Peña MD, FACC (Electronically Signed) Final Date: 29 November 2024 14:12 S
--- NOTE | 2024-11-29 19:29 | PC.NURSE ---
Addendum entered by Vandana Victoria RN 11/29/24 19:31: cont....So..RN wrote new discharge meds on discharge instruction sheet and phoned them in to [facility] Original Note: dr leiva had difficulty placing discharge meds into the [email or web address] system (nitro rapid release and imdur 30 mg daily).RN does not have capacity.
--- NOTE | 2024-11-29 20:39 | PC.NURSE ---
TR band off 2030, dressing applied, no bleeding or hematoma noted
--- NOTE | 2024-11-29 21:32 | PC.NURSE ---
TR band off 1 hour, patient ambulated in hallway, no bleeding or hematoma noted to cath site, radial pulses palpable, dressing c/d/i, IV dc'ed, discharge teaching given, patient ambulatory out with
== END 2024-11-29 21:36 | disposition home or self-care (01) ==
LOC: ER 14:40 → ICU 16:09 → CSU 11-29 02:05
PROVIDERS: Internal Medicine; Admitting Provider Internal Medicine; Emergency Provider Emergency Medicine; PCP Family Medicine; Visit Provider Internal Medicine
DX: I25.118 Atherosclerotic heart disease of native coronary artery with other forms of angina pectoris (principal); I10 Essential (primary) hypertension; Z87.891 Personal history of nicotine dependence; Z86.73 Personal history of transient ischemic attack (TIA), and cerebral infarction without residual deficits; K21.9 Gastro-esophageal reflux disease without esophagitis; Z79.82 Long term (current) use of aspirin
CPT/HCPCS: 36415; 71045; 80053; 83735; 83880; 84100; 84484; 85025; 85378; 93005; 93306; 93458; 93571; 96372; 99152; 99153; 99285; C1769; C1887; C1894; G0378; J1200; J1644; J2250; J3010; J3490; J7030; J9999; Q9967

== ENCOUNTER 2025-01-26 07:02 | Outpatient (CLI) | payer BC, SELFPAY ==
[2025-01-26 08:34] LABS: Cholesterol 128 mg/dL (0-200); HDL Cholesterol 37 mg/dL (60-100); Triglycerides 74 mg/dL (0-150)
== END 2025-01-26 07:03 | disposition home or self-care (01) ==
PROVIDERS: PCP Family Medicine; Visit Provider Internal Medicine Cardiovascular Disease
DX: E78.5 Hyperlipidemia, unspecified (principal)
CPT/HCPCS: 80061